=== PATIENT | female | born 1945 | race Caucasian/White ===

== ENCOUNTER 2019-09-21 12:10 | Outpatient (CLI) | payer MEDICARE, SELFPAY ==
--- NOTE | ~2019-09-21 | CT_ITS ---
EXAMINATION: CT abdomen pelvis w con DATE: 09/21/2019 13:14 INDICATION: Left lower quadrant abdominal pain. TECHNIQUE: Computed tomography (CT) of the abdomen and pelvis was performed with 100 mL Omnipaque 350 intravenous contrast. Automated exposure control and iterative reconstruction technique were employe d. The dose-length product was 1069.83 mGy-cm. COMPARISON: CT abdomen and pelvis 04/20/2017 FINDINGS: The visualized portions of the lung bases demonstrate mild atelectasis. No pleural effusion . The heart size is normal. No pericardial effusion. There are coronary artery calcifications. The li silvino, gallbladder, spleen, pancreas, and adrenal glands are normal. There is a 4 mm cyst in right kidn ey. There are peripelvic cysts in the kidneys. There are scattered diverticula in the colon. There is fat stranding around a diverticulum of the sigmoid colon, consistent with diverticulitis. There are no dilated loops of bowel. The appendix is normal. There are no pathologically enlarged lymph nodes. There is no free intraperitoneal fluid. There is a left hip arthroplasty. There is severe thoracic an d lumbar spondylosis. IMPRESSION: 1. Mild sigmoid diverticulitis. No perforation or abscess. Reviewed, dictated and finalized at location A.
[2019-09-21 13:09] LABS: Estimated Glomerular Filt Rate > 60
== END 2019-09-21 12:11 | disposition home or self-care (01) ==
PROVIDERS: PCP Physician Assistant; Visit Provider Physician Assistant
DX: R10.32 Left lower quadrant pain (principal); K57.32 Diverticulitis of large intestine without perforation or abscess without bleeding
CPT/HCPCS: 36415; 74177; Q9967

== ENCOUNTER 2020-07-18 10:35 | Outpatient (CLI) | payer MEDICARE, SELFPAY ==
--- NOTE | 2020-07-18 10:30 | ECG_ITS ---
Measurements Intervals [place] Rate: 62 P: 61 [place]: 223 QRS: 20 QRSD: 86 T: 32 QT: 391 QTc: 399 Interpretive Statements SINUS RHYTHM WITH FIRST DEGREE AV BLOCK BASELINE ARTIFACT- I, III, AVL ABNORMAL ECG Electronically Signed On 07-18-2020 11:15:14 CDT by Evangelista Herrera D.O.
[2020-07-18 11:34] LABS: Anion Gap 6 mmol/L (8-16); Blood Urea Nitrogen 19 mg/dL (7-17); Calcium 9.6 mg/dL (8.4-10.2); Carbon Dioxide 33 mmol/L (22-30); Chloride 99 mmol/L (98-107); Estimated Glomerular Filt Rate 54; Glucose 96 mg/dL (65-105); Potassium 3.9 mmol/L (3.4-5.0); Sodium 138 mmol/L (137-145)
== END 2020-07-18 10:36 | disposition home or self-care (01) ==
PROVIDERS: Anesthesiology; PCP Physician Assistant; Visit Provider Podiatrist Foot & Ankle Surgery
DX: I10 Essential (primary) hypertension (principal); Z01.818 Encounter for other preprocedural examination; I44.0 Atrioventricular block, first degree
CPT/HCPCS: 36415; 80048; 93005

== ENCOUNTER → 2020-07-23 01:39 | Outpatient (CLI) | payer MEDICARE, SELFPAY ==
[2020-07-23 18:55] LABS: SARS-CoV-2 RNA PCR Negative
== END ==
PROVIDERS: PCP Physician Assistant; Visit Provider Podiatrist Foot & Ankle Surgery
DX: Z01.812 Encounter for preprocedural laboratory examination (principal); Z20.822 Contact with and (suspected) exposure to COVID-19
CPT/HCPCS: C9803; U0003; U0005

== ENCOUNTER 2020-07-26 05:48 | Day surgery (SDC) | payer MEDICARE, SELFPAY ==
[2020-07-15 12:42] VITALS: BMI 32.9
--- NOTE | 2020-07-25 10:11 | WPDANESEPPF ---
Anes - Initial Pre Proc Eval Procedure: Operation Date: 07/26/20 07:30 Proposed Procedures p Removal Soft Tissue Mass Right Foot - Alvaro Santiago JR, MD Date/Time: 07/25/20 10:11 Surgeon: Alvaro Santiago JR, MD Pre Op Diagnosis: soft tissue mass right foot Patient Data Age: 75 Gender: F Height: 1.57 m Weight: 81.65 kg Allergies Allergy/AdvReac Type Severity Reaction Status Date / Time cephalexin Allergy Unknown Hives Verified 07/26/20 06:29 gentamicin Allergy Unknown MYCINS Verified 07/26/20 06:29 CAUSE HIVES Macrolide Antibiotics Allergy Unknown HIVES Verified 07/26/20 06:29 metronidazole Allergy Unknown SEVERE Verified 07/26/20 06:29 NAUSEA/VOMITING vancomycin Allergy Unknown MYCINS Verified 07/26/20 06:29 CAUSE HIVES Home Medications Medication Instructions Recorded Confirmed Type albuterol sulfate [Ventolin HFA] 2 inh INHALATION PRN PRN 07/15/20 07/26/20 History aspirin [Adult Low Dose Aspirin] 81 mg PO HS 07/15/20 07/26/20 History biotin 10,000 mcg PO DAILY 07/15/20 07/26/20 History carvedilol 12.5 mg PO QAM 07/15/20 07/26/20 History dimenhydrinate [Motion Sickness] 50 mg PO Q4-6H PRN 07/15/20 07/26/20 History docusate sodium [Stool Softener] 50 mg PO PRN PRN 07/15/20 07/26/20 History glycopyrrolate-formoterol [Bevespi 2 puff INHALATION DAILY 07/15/20 07/26/20 History Aerosphere] hydrochlorothiazide 25 mg PO QAM 07/15/20 07/26/20 History mqqsgrqskyle-Gq-yxrf-minerals 1 tablet PO DAILY 07/15/20 07/26/20 History [Women's Multiple Vitamins] olmesartan 40 mg PO DAILY 07/15/20 07/26/20 History omeprazole 40 mg PO HS 07/15/20 07/26/20 History pumpkin seed extract-soy germ [Azo 1 cap PO DAILY 07/15/20 07/26/20 History Bladder Control] rosuvastatin 10 mg PO HS 07/15/20 07/26/20 History Patient hx anesthesia problems: none Family hx anesthesia problems: none [facility], [facility] Past Medical History Medical History (Updated 07/25/20 @ 10:12 by Darrin Goldsmith DO) COPD (chronic obstructive pulmonary disease) GERD (gastroesophageal reflux disease) Hyperlipidemia Hypertension Vertigo Surgical History Surgical History (Updated 07/25/20 @ 10:13 by Darrin Goldsmith DO) History of total hip replacement Family History Family History (Updated 06/17/15 @ 09:41 by DOCTOR UNKNOWN) Other Family history of chronic obstructive pulmonary disease Social History Social History Smoking packs per day: 1 Smoking cigarettes per day: 20.0 Years smoked: 20 Smoking pack-years: 20.00 Smoking status: Former smoker Tobacco type: cigarettes Smoking end date: 03/15/05 Alcohol intake: never Living arrangements: with family Spiritual care concerns: No Anes - Eval Final PreProcedure Day of Procedure 07/25/20 10:11 Patient weight: obese Heart: regular rate and rhythm Lungs: clear to auscultation and normal air movement Airway: Mallampati scale class III Neurological: alert and oriented Last oral intake: >/= 8 hours ASA classification: III Emergent: no Anesthetic plan: proceed Anesthesia type and monitoring: general GIVS and standard monitoring Informed Consent: The patient's anesthetic plan and its attendant risks and benefits were discussed with the patient/family/POA. Questions were solicited and answers provided to the satisfaction of the patient/family/POA.
[2020-07-26] VITALS (9 sets, daily range): BP systolic 96–143; BP diastolic 56–78; PULSE 61–71; RESP 12–18; TEMP 36.2–36.6; O2SAT 93–99
[2020-07-26] MEDS: LACTATED RINGERS 1,000 ML 30 ML IV CONT (06:37)
--- NOTE | 2020-07-26 07:22 | WPDHPUPDATE1 ---
History and Physical Update Update Date/Time: 07/26/20 07:22 History and Physical has been reviewed, including an updated exam of the patient. There are NO changes in the patient's condition. Risks, benefits, and alternatives have been discussed and questions answered. Patient agrees to proceed with procedure.
[2020-07-26] MEDS: CLINDAMYCIN 900 MG/D5W 50 ML 900 MG/50 ML PIGGYBACK 50 MG IVPB (07:29)
[2020-07-26] MEDS: BUPIVACAINE HCL 0.5% PF 30 ML VIAL 10 ML INFILTRATE (07:57)
[2020-07-26] MEDS: LIDOCAINE HCL 2% PF INJ 5 ML VIAL 10 ML INFILTRATE (07:57)
--- NOTE | 2020-07-26 08:40 | PM.PROC ---
Procedure Note - Detailed Date of procedure: 07/26/20 Pre-op diagnosis: soft tissue mass right foot Post-op diagnosis: same Procedure performed: Excision of soft tissue mass right foot Anesthesia: GLMA and local Surgeon: Alvaro Santiago JR, DPM Estimated blood loss (mL): 1 Drains: No Packing: No Pathology: yes (thickwalled mass sent for gross and histopathology) Complications: No immediate complications Condition: stable Disposition: same day Findings: Under mild sedation, the patient was brought in to the operating room, placed on the operating table in the supine position. A pneumatic ankle tourniquet was placed about the patient's right ankle. Following general anesthesia, local anesthesia was obtained about the right lower extremity utilizing 20 ccs of 2% Lidocaine plain and 0.5% Marcaine plain. The foot was then scrubbed, prepped, and draped in the usual aseptic manner. An Esmarch bandage was then used to exsanguinate the patient's foot and the pneumatic ankle tourniquet was then inflated. Next, an incision was made starting proximal to the plantar first metatarsal head extending to the base of the hallux. Dissection was continued deep to the subcutaneus structures. All bleeders were cauterized as necessary. Next the dissection was continued down to the plantar fascia which was noted to be normal. Along the plantar first metatarsal head was a thick walled cyst like mass that was freed of its soft tissue attachement and sent for gross and histopathology. The wound site was flushed with sterile saline. The Deep subcutaneus tissue was reapproximated with 3-0 Vicryl and the skin was reapproximated with 3-0 Prolene in Simple interrupted suture technique. Upon completion of the procedure the plantar incision was dressed with adaptic, 4.4 gauze, kerlix and coban. The pneumatic ankle tourniquet was then deflated and a prompt hyperemic response was noted to all digits of the right foot. The surgical shoe was then applied. The patient did very well with the procedure and the anesthesia. She was transferred to the recovery room with vital signs stable and vascular status intact to all toes of the affected foot. Following a period of postoperative monitoring, the patient will be discharged home on the following written and oral postoperative instructions: 1. The patient should keep the dressing clean, dry, and intact. Use a cast protector bag with showers. 2. The patient will be strictly protected weight bearing with a surgical shoe. 3. Patient should ice and elevate the right foot when at rest. 4. The patient is to contact Dr. Santiago for all postop care and if any problems arise. 5. Prescriptions were written for Percocet 5/325 dispensed 40 to be taken 1 p.o. q.4-6 hours as needed for severe pain.
[2020-07-26] MEDS: oxyCODONE/ACETAMINOPHEN (*CRX) 5-325 MG TABLET 1 TABLET PO (10:10)
== END 2020-07-26 10:45 | disposition home or self-care (01) ==
PROVIDERS: PCP Physician Assistant; Visit Provider Podiatrist Foot & Ankle Surgery
PROC: (CPT 11421; principal; 2020-07-26 07:30)
DX: M79.89 Other specified soft tissue disorders (principal); J44.9 Chronic obstructive pulmonary disease, unspecified; I10 Essential (primary) hypertension; E78.5 Hyperlipidemia, unspecified; K21.9 Gastro-esophageal reflux disease without esophagitis; Z87.891 Personal history of nicotine dependence; E66.9 Obesity, unspecified; Z68.33 Body mass index [BMI] 33.0-33.9, adult
CPT/HCPCS: 11421; 12041; 88304; A9270; J2370; J2405; J2704; J3010; J7120

== ENCOUNTER 2020-10-26 10:46 | Emergency (ER) | payer MEDICARE, SELFPAY ==
--- NOTE | 2020-10-26 10:55 | ED.URI ---
HPI - URI/Sore Throat General Chief Complaint: Upper Respiratory Infection Stated Complaint: Cough,Blood tinted Sputum Time Seen by Provider: 10/26/20 10:56 Source: patient and RN notes reviewed Mode of arrival: ambulatory Limitations: no limitations History of Present Illness HPI Narrative: 75-year-old female presents to the [facility] with I do not feel well. . Patient has a history of COPD and has just had increased coughing. Denies any breathing changes, breathing difficulty states that she is just had an increased cough. All night it has been clear sputum states that she had some brownish discoloration while sitting in the car prior to arrival. Patient is concerned over COVID-19 even though she has been vaccinated in May 2020 with the Moderna vaccine MD elicited complaint: cough (increased) Pertinent past history: COPD Onset (ago): hour(s) (12) Related Data Home Medications Medication Instructions Recorded Confirmed Bevespi Aerosphere 2 puff INHALATION DAILY 07/15/20 10/26/20 albuterol sulfate [Ventolin HFA] 2 inh INHALATION PRN PRN 07/15/20 10/26/20 aspirin 81 mg PO 07/15/20 10/26/20 biotin 10,000 mcg PO DAILY 07/15/20 10/26/20 carvedilol 12.5 mg PO QAM 07/15/20 10/26/20 hydrochlorothiazide 25 mg PO [facility] 07/15/20 10/26/20 yeyfimosjkin-Cc-aipg-minerals 1 tablet PO DAILY 07/15/20 10/26/20 olmesartan 40 mg PO DAILY 07/15/20 10/26/20 omeprazole 40 mg PO 07/15/20 10/26/20 rosuvastatin 10 mg PO 07/15/20 10/26/20 Allergies Allergy/AdvReac Type Severity Reaction Status Date / Time cephalexin Allergy Unknown Hives Verified 10/26/20 11:22 gentamicin Allergy Unknown MYCINS Verified 10/26/20 11:22 CAUSE HIVES Macrolide Antibiotics Allergy Unknown HIVES Verified 10/26/20 11:22 metronidazole Allergy Unknown SEVERE Verified 10/26/20 11:22 NAUSEA/VOMITING vancomycin Allergy Unknown MYCINS Verified 10/26/20 11:22 CAUSE HIVES Review of Systems Review of Systems: All systems reviewed & are unremarkable except as noted in HPI and below Constitutional: Constitutional: Reports no additional constitutional complaints, Denies chills and Denies fever(s) Eyes: Eyes: Reports no additional eye complaints ENT: Reports system reviewed and no additional complaints, except as documented, Denies vertigo, Denies dizziness, Denies nasal congestion and Denies sore throat Cardiovascular: Cardiovascular: Reports no additional cardiovascular complaints, Denies chest pain, Denies rapid heart rate and Denies slow heart rate Respiratory: Respiratory: Reports as per HPI, Denies chest congestion, Reports cough, Denies dyspnea and Denies wheezing Musculoskeletal: Musculoskeletal: Reports no additional musculoskeletal complaints Integumentary/Breasts: Skin/Breast: Reports system reviewed and no additional complaints, except as docu Neurologic: Reports system reviewed and no additional complaints, except as documented Psychiatric: Psychiatric: Reports no additional psychiatric complaints Allergic/Immunologic: Allergic/Immunologic: Reports no additional allergic/immunologic complaints [facility] Past Medical History Medical History (Updated 10/26/20 @ 11:16 by Shantell Carvajal) COPD (chronic obstructive pulmonary disease) GERD (gastroesophageal reflux disease) Hyperlipidemia Hypertension Vertigo Surgical History Surgical History History of total hip replacement Family History Family History Other Family history of chronic obstructive pulmonary disease Social History Social History Smoking packs per day: 1 Smoking cigarettes per day: 20.0 Years smoked: 20 Smoking pack-years: 20.00 Smoking status: Former smoker Tobacco type: cigarettes Smoking end date: 03/15/05 Alcohol intake: never Gender identity (if verbalized by the patient): Female Spiritual care ad
[2020-10-26 11:00] VITALS: BP 147/69; PULSE 63; RESP 18; TEMP 36.3; O2SAT 97
[2020-10-28 18:30] LABS: SARS-CoV-2 RNA PCR Negative
== END 2020-10-26 11:30 | disposition home or self-care (01) ==
PROVIDERS: Emergency Provider Nurse Practitioner; PCP Physician Assistant
DX: J06.9 Acute upper respiratory infection, unspecified (principal); Z20.822 Contact with and (suspected) exposure to COVID-19; Z87.891 Personal history of nicotine dependence; J44.9 Chronic obstructive pulmonary disease, unspecified; K21.9 Gastro-esophageal reflux disease without esophagitis; E78.5 Hyperlipidemia, unspecified; I10 Essential (primary) hypertension
CPT/HCPCS: 99213; C9803; G0463; U0003; U0005

== ENCOUNTER 2020-12-03 09:35 | Outpatient (CLI) | payer MEDICARE, SELFPAY ==
--- NOTE | ~2020-12-03 | DEXA_ITS ---
Bone Density Report Name: Janie Young Age: 75 Sex: Female Ethnicity: White Date of : 1945 Indication: postmenopausal; height loss; asthma or emphysema; Referring Provider: SACHI, DENI Study: Bone densitometry was performed. Exam Date: December 03, 2020 Accession number: [id number] Bone Density: Region BMD T-score Z-score Classification AP Spine (L3, L4) 1.163 0.6 3.2 Normal Femoral Neck (Right) 0.603 -2.2 0.0 Osteopenia Total Hip (Right) 0.816 -1.0 0.9 Normal World Health Organization criteria for BMD impression classify patients as: Normal (T-score at or above -1.0), Osteopenia (T-score between -1.0 and -2.5), or Osteoporosis (T-score at or below -2.5). 10-year Fracture Risk(1): Major Osteoporotic Fracture 14% Hip Fracture 4.0% Reported Risk Factors: [place] (), Neck BMD=0.603, BMI=34.0 (1) FRAX(R) Version 3.08. Fracture probability calculated for an untreated patient. Fracture probability may be lower if the patient has received treatment. Previous Exams: Region Exam Age BMD T-score BMD Change BMD Change Date g/cm2 vs Baseline vs Previous AP Spine(L3, L4) 12/03/2020 75 1.163 0.6 -0.070(-5.7%)# -0.070(-5.7%)# 10/25/2012 67 1.234 1.2 Total Hip(Right) 12/03/2020 75 0.816 -1.0 -0.137(-14.3%) -0.137(-14.3%) 10/25/2012 67 0.953 0.1 *Denotes significance at 95% confidence level, LSC for AP Spine = 0.022 g/cm2, LSC for Total Hip = 0.027 g/cm2 Clinical Information Provided by Patient: Has used the following medications: Vitamin D Has the following medical conditions: Asthma or Emphysema Patient maximum height was 63 Menopause Age: 48 No regular weight bearing exercise Drinks caffeinated beverages Onset of menses at age 12 Number of children 2 Impression: The patient has low bone mass, based on the Right Femoral Neck T-score. The patient has an estimated ten-year risk of hip fracture of 4% and an estimated ten-year risk of major fracture of 14%, based on the WHO FRAX algorithm. No significant bone loss was observed. Discussion: BONE DENSITY IS LOW AT ONE OR MORE SKELETAL SITES. THE PATIENT'S BMD AND CLINICAL RISK FACTORS CONTRIBUTE TO THIS PATIENT'S INCREASED RISK OF FRACTURE. This patient's lowest T-score is low at one or more skeletal sites. It meets the World Health Organization's (WHO) criteria for ?low bone mass? (T-score between -1.0 and -2.5). The patient's 10-year risk of hip fracture as calculated by FRAX exceeds the threshold where pharmacological therap
== END 2020-12-03 09:36 | disposition home or self-care (01) ==
LOC: ANHIMG 09:37
PROVIDERS: PCP Physician Assistant; Visit Provider Physician Assistant
DX: Z78.0 Asymptomatic menopausal state (principal); M85.851 Other specified disorders of bone density and structure, right thigh
CPT/HCPCS: 77080

== ENCOUNTER 2020-12-17 08:26 | Emergency (ER) | payer MEDICARE, SELFPAY ==
[2020-12-17] VITALS (7 sets, daily range): BP systolic 114–121; BP diastolic 58–63; PULSE 62–69; RESP 14–19; TEMP 36.8; O2SAT 94–97
--- NOTE | ~2020-12-17 | XR_ITS ---
XR chest 2V DATE: 12/17/2020 09:00 INDICATION: Shortness of breath TECHNIQUE: AP and lateral chest COMPARISON: 05/26/2018 2 view chest FINDINGS: Heart size appears within normal limits. There is thoracic aortic calcification. No hilar o r mediastinal enlargement. No pulmonary infiltrate or consolidation, pleural effusion or pulmonary co ngestion or pneumothorax is detected. Diffuse osteopenia. IMPRESSION: No active cardiopulmonary disease Reviewed, dictated and finalized at location A.
--- NOTE | 2020-12-17 08:44 | ECG_ITS ---
Measurements Intervals [place] Rate: 69 P: 95 [place]: 203 QRS: 29 QRSD: 79 T: 46 QT: 375 QTc: 402 Interpretive Statements SINUS RHYTHM BORDERLINE AV CONDUCTION DELAY BASELINE WANDER- V1 BORDERLINE ECG Electronically Signed On 12-17-2020 9:18:47 CDT by Evangelista Herrera D.O.
--- NOTE | 2020-12-17 09:03 | ED.SOB ---
HPI - SOB/Dyspnea General Chief Complaint: Shortness of Breath/Dyspnea Stated Complaint: cough, dyspnea Time Seen by Provider: 12/17/20 09:02 Source: patient and family Mode of arrival: ambulatory Limitations: no limitations History of Present Illness HPI Narrative: 75-year-old female History of COPD Here for evaluation of shortness of breath and an episode of hemoptysis He states that she has been mildly ill for a week or 2 but has had a worse cough and increased shortness of breath with activity for the past 1-1/2 to 2 days Earlier today she had a cough that produced a small amount of blood with mucus which concerned her because her to come to the hospital She did not use any of her COPD medications this morning No chest pain, no fever She has been vaccinated against Covid and does not have any contacts that she knows of MD elicited complaint: shortness of breath and cough Related Data Home Medications Medication Instructions Recorded Confirmed Bevespi Aerosphere 2 puff INHALATION DAILY 07/15/20 10/26/20 albuterol sulfate [Ventolin HFA] 2 inh INHALATION PRN PRN 07/15/20 10/26/20 aspirin 81 mg PO 07/15/20 10/26/20 biotin 10,000 mcg PO DAILY 07/15/20 10/26/20 carvedilol 12.5 mg PO QAM 07/15/20 10/26/20 hydrochlorothiazide 25 mg PO QA 07/15/20 10/26/20 xyvmegewwtzn-Lq-txxh-minerals 1 tablet PO DAILY 07/15/20 10/26/20 olmesartan 40 mg PO DAILY 07/15/20 10/26/20 omeprazole 40 mg PO 07/15/20 10/26/20 rosuvastatin 10 mg PO 07/15/20 10/26/20 Allergies Allergy/AdvReac Type Severity Reaction Status Date / Time cephalexin Allergy Unknown Hives Verified 12/17/20 08:46 gentamicin Allergy Unknown MYCINS Verified 12/17/20 08:46 CAUSE HIVES Macrolide Antibiotics Allergy Unknown HIVES Verified 12/17/20 08:46 metronidazole Allergy Unknown SEVERE Verified 12/17/20 08:46 NAUSEA/VOMITING vancomycin Allergy Unknown MYCINS Verified 12/17/20 08:46 CAUSE HIVES Review of Systems Review of Systems: All systems reviewed & are unremarkable except as noted in HPI and below Constitutional: Constitutional: Reports no additional constitutional complaints, Denies chills, Denies fever(s) and Denies headache(s) Eyes: Eyes: Reports no additional eye complaints and Denies change in vision ENT: Denies headache(s) and Denies sore throat Cardiovascular: Cardiovascular: Denies chest pain and Denies dyspnea Respiratory: Respiratory: Reports cough and Reports dyspnea Gastrointestinal: Gastrointestinal: Denies abdominal pain, Denies diarrhea and Denies vomiting Genitourinary: Genitourinary: Denies urinary frequency and Denies dysuria Musculoskeletal: Musculoskeletal: Denies deformity, Denies arthralgias, Denies joint swelling and Denies numbness Integumentary/Breasts: Skin/Breast: Denies rash and Denies wounds Neurologic: Denies headache(s), Denies focal weakness and Denies numbness Psychiatric: Psychiatric: Reports no additional psychiatric complaints Endocrine: Endocrine: Reports no additional endocrine complaints Hematologic/Lymphatic: Hematologic/Lymphatic: Reports no additional hematologic/lymphatic complaints and Denies easy bleeding Allergic/Immunologic: Allergic/Immunologic: Reports no additional allergic/immunologic complaints PMFSH Past Medical History Medical History COPD (chronic obstructive pulmonary disease) GERD (gastroesophageal reflux disease) Hyperlipidemia Hypertension Vertigo Surgical History Surgical History History of total hip replacement Family History Family History Other Family history of chronic obstructive pulmonary disease Social History Social History Smoking packs per day: 1 Smoking cigarettes per day: 20.0 Years smoked: 20 Smoking pack-years: 20.00 S
[2020-12-17 09:07] LABS: Hematocrit 41.9 % (37.0-47.0); Hemoglobin 13.5 g/dL (12.0-15.0); Mean Corpuscular HGB Conc 32.2 g/dl (32-36); Mean Corpuscular Volume 89.9 fl (80-100); Mean Platelet Volume 9.8 fl (7.4-10.4); Platelet Count Result 173 k/mm3 (150-375); Red Blood Count 4.66 M/mm3 (4.2-5.4); Red Cell Distribution Width 13.1 % (11.5-14.5); White Blood Count 6.5 K/mm3 (4.5-10.0)
[2020-12-17 09:19] LABS: Anion Gap 7 mmol/L (8-16); Blood Urea Nitrogen 17 mg/dL (7-17); Calcium 8.8 mg/dL (8.4-10.2); Carbon Dioxide 29 mmol/L (22-30); Chloride 98 mmol/L (98-107); Estimated CRCL calculation 43 ml/min; Estimated Glomerular Filt Rate 54; Glucose 109 mg/dL (65-110); Potassium 3.6 mmol/L (3.4-5.0); Sodium 134 mmol/L (137-145)
[2020-12-17 09:43] LABS: Band Neutrophils Percent 1 % (0-6); Lymphocytes Absolute Manual 1.88 K/mm3 (1.1-4.5); Monocytes Absolute Manual 1.75 K/mm3 (0.1-0.90); Monocytes Percent Manual 27 % (3-9); Neutrophils Absolute Manual 2.86 K/mm3 (1.7-7.2); Neutrophils Percent Manual 43 % (46-73); Platelet Estimate Adequate (Adequate); Total Cells Counted 100
[2020-12-17] MEDS: IPRATROPIUM BR 0.02% INH SOLN 0.5 MG/2.5 ML VIAL INHALATION (10:22)
[2020-12-17] MEDS: ALBUTEROL SULFATE NEB 2.5 MG/0.5 ML INH 5 MG INHALATION (10:22)
[2020-12-17 10:54] LABS: D Dimer 0.34 ug/mL (<0.48)
[2020-12-17 11:22] LABS: NT Pro B Type Natriuretic Pept 148 pg/mL (5-100); Troponin I < 0.012 ng/mL (0.000-0.034)
[2020-12-17 19:14] LABS: SARS-CoV-2 RNA PCR Positive
== END 2020-12-17 11:58 | disposition home or self-care (01) ==
PROVIDERS: Emergency Provider Emergency Medicine; PCP Physician Assistant
DX: U07.1 COVID-19 (principal); J44.1 Chronic obstructive pulmonary disease with (acute) exacerbation; I10 Essential (primary) hypertension; E78.5 Hyperlipidemia, unspecified; Z87.891 Personal history of nicotine dependence; Z79.82 Long term (current) use of aspirin
CPT/HCPCS: 36415; 71046; 80048; 83880; 84484; 85025; 85380; 93005; 94640; 96365; 96366; 96375; 99284; C9803; J1100; J1956; U0003; U0005

== ENCOUNTER → 2021-07-08 10:27 | Outpatient (CLI) | payer MEDICARE, SELFPAY ==
--- NOTE | ~2021-07-08 | XR_ITS ---
XR hip LT min 2V DATE: 07/08/2021 10:50 INDICATION: Left hip pain TECHNIQUE: AP, lateral and crosstable lateral views of left hip COMPARISON: 03/12/2016 left hip FINDINGS: Status post left total hip arthroplasty. No fracture or dislocation, periosteal reaction or bone destruction is detected. Normal alignment at the pubic symphysis and left sacroiliac joint. Degenerative disc disease in the lower lumbar spine. IMPRESSION: Status post left total hip arthroplasty Reviewed, dictated and finalized at location A.
== END ==
PROVIDERS: PCP Physician Assistant; Visit Provider Physician Assistant
DX: M25.552 Pain in left hip (principal)
CPT/HCPCS: 73502

== ENCOUNTER 2022-08-25 01:24 | Day surgery (SDC) | payer MEDICARE, SELFPAY ==
[2022-08-17 14:28] VITALS: BMI 32.5
[2022-08-25 07:18] VITALS: BP 152/70; PULSE 67; RESP 17; TEMP 36; O2SAT 96; BMI 32.8
[2022-08-25] MEDS: LACTATED RINGERS 1,000 ML 150 ML IV CONT (07:29)
--- NOTE | 2022-08-25 08:06 | WPDANESEPPF ---
Anes - Initial Pre Proc Eval Procedure: Operation Date: 08/25/22 08:45 Proposed Procedures p Colonoscopy - Norm Lindsay MD Date/Time: 08/25/22 08:06 Surgeon: Norm Lindsay MD Pre Op Diagnosis: hx colon polyps Patient Data Age: 77 Gender: F Height: 1.59 m Weight: 82.8 kg Last Vital Signs Temp 36.0 C L 08/25/22 07:18 Pulse 67 08/25/22 07:18 Resp 17 08/25/22 07:18 BP 152/70 H 08/25/22 07:18 Pulse Ox 96 08/25/22 07:18 O2 Del Method Room Air 08/25/22 07:18 Allergies Allergy/AdvReac Type Severity Reaction Status Date / Time cephalexin Allergy Unknown Hives Verified 08/25/22 07:17 gentamicin Allergy Unknown MYCINS Verified 08/25/22 07:17 CAUSE HIVES Macrolide Antibiotics Allergy Unknown HIVES Verified 08/25/22 07:17 metronidazole Allergy Unknown SEVERE Verified 08/25/22 07:17 NAUSEA/VOMITING vancomycin Allergy Unknown MYCINS Verified 08/25/22 07:17 CAUSE HIVES Home Medications Medication Instructions Recorded Confirmed Type albuterol sulfate 90 mcg/actuation 2 inh inhalation PRN PRN SOB 07/15/20 08/25/22 History aerosol inhaler (Ventolin HFA) aspirin 81 mg tablet 81 mg PO HS 07/15/20 08/25/22 History biotin 10,000 mcg capsule 10,000 mcg PO DAILY 07/15/20 08/25/22 History carvedilol 12.5 mg tablet 12.5 mg PO QAM 07/15/20 08/25/22 History hydrochlorothiazide 25 mg tablet 25 mg PO QAM 07/15/20 08/25/22 History sdcjuvrrcgno-Nn-ocoe-minerals 18 1 tablet PO DAILY 07/15/20 08/25/22 History mg-0.4 mg tablet olmesartan 40 mg tablet 40 mg PO DAILY 07/15/20 08/25/22 History omeprazole 40 mg capsule,delayed 40 mg PO HS 07/15/20 08/25/22 History release rosuvastatin 10 mg tablet 10 mg PO HS 07/15/20 08/25/22 History inhalational spacing device #1 ea 10/26/20 08/25/22 Rx (Aerochamber with Flowsignal) amlodipine 2.5 mg tablet 2.5 mg PO DAILY 08/17/22 08/25/22 History Patient hx anesthesia problems: none Family hx anesthesia problems: none Results Review: All pre-operative results and documents have been reviewed as part of the pre-operative evaluation. [facility] Past Medical History Medical History COPD (chronic obstructive pulmonary disease) GERD (gastroesophageal reflux disease) Hyperlipidemia Hypertension Vertigo Surgical History Surgical History History of total hip replacement Family History Family History Other Family history of chronic obstructive pulmonary disease Social History Social History Smoking packs per day: 1 Smoking cigarettes per day: 20.0 Years smoked: 20 Smoking pack-years: 20.00 Smoking status: Former smoker Tobacco type: cigarettes Smoking end date: 03/15/92 Alcohol intake: never Substance use: never Substance use type: does not use Living arrangements: with family Gender identity (if verbalized by the patient): Female Spiritual care concerns: No Anes - Eval Final PreProcedure Day of Procedure 08/25/22 08:06 Patient weight: obese Heart: regular rate and rhythm Lungs: clear to auscultation and normal air movement Airway: Mallampati scale class III Neurological: alert and oriented Last oral intake: >/= 8 hours ASA classification: III Emergent: no Anesthetic plan: proceed Anesthesia type and monitoring: general GIVS and standard monitoring Results Review: All pre-operative results and documents have been reviewed as part of the pre-operative evaluation. Informed Consent: The patient's anesthetic plan and its attendant risks and benefits were discussed with the patient/family/POA. Questions were solicited and answers provided to the satisfaction of the patient/family/POA.
--- NOTE | 2022-08-25 08:20 | PM.HPGS ---
History of Present Illness History of Present Illness Consent: Risks, benefits, and alternatives have been discussed and questions answered. Patient agrees to proceed with procedure. Chief complaint: hx colon polyps Narrative: Janie Young is a 77 year old female with colon polyps in 2018 Review of Systems Constitutional: Constitutional: Denies headache(s) and Denies weakness Eyes: Eyes: Denies blurry vision ENT: Reports Normal hearing present, Denies headache(s) and Denies neck pain Cardiovascular: Cardiovascular: Denies chest pain and Denies dyspnea Respiratory: Respiratory: Denies dyspnea Gastrointestinal: Gastrointestinal: Reports no additional gastrointestinal complaints Genitourinary: Genitourinary: Denies dysuria Musculoskeletal: Musculoskeletal: Denies neck pain Integumentary/Breasts: Skin/Breast: Denies dry skin Neurologic: Reports Normal hearing present, Denies headache(s) and Denies weakness Psychiatric: Psychiatric: Denies anxiety Endocrine: Endocrine: Denies change in body appearance Hematologic/Lymphatic: Hematologic/Lymphatic: Denies easy bleeding Allergic/Immunologic: Allergic/Immunologic: Denies urticaria PMF Past Medical History Medical History (Updated 08/25/22 @ 08:21 by Norm Lindsay MD) Adenomatous colon polyp Colon cancer screening COPD (chronic obstructive pulmonary disease) GERD (gastroesophageal reflux disease) Hyperlipidemia Hypertension Vertigo Surgical History Surgical History History of total hip replacement Family History Family History Other Family history of chronic obstructive pulmonary disease Social History Social History Smoking packs per day: 1 Smoking cigarettes per day: 20.0 Years smoked: 20 Smoking pack-years: 20.00 Smoking status: Former smoker Tobacco type: cigarettes Smoking end date: 03/15/92 Alcohol intake: never Substance use: never Substance use type: does not use Living arrangements: with family Gender identity (if verbalized by the patient): Female Spiritual care concerns: No Meds Home Medications and Allergies Home Medications Medication Instructions Recorded Confirmed Type albuterol sulfate 90 mcg/actuation 2 inh inhalation PRN PRN SOB 07/15/20 08/25/22 History aerosol inhaler (Ventolin HFA) aspirin 81 mg tablet 81 mg PO HS 07/15/20 08/25/22 History biotin 10,000 mcg capsule 10,000 mcg PO DAILY 07/15/20 08/25/22 History carvedilol 12.5 mg tablet 12.5 mg PO QAM 07/15/20 08/25/22 History hydrochlorothiazide 25 mg tablet 25 mg PO QAM 07/15/20 08/25/22 History tygzwbuaoerk-Mf-njsa-minerals 18 1 tablet PO DAILY 07/15/20 08/25/22 History mg-0.4 mg tablet olmesartan 40 mg tablet 40 mg PO DAILY 07/15/20 08/25/22 History omeprazole 40 mg capsule,delayed 40 mg PO HS 07/15/20 08/25/22 History release rosuvastatin 10 mg tablet 10 mg PO HS 07/15/20 08/25/22 History inhalational spacing device #1 ea 10/26/20 08/25/22 Rx (Aerochamber with Flowsignal) amlodipine 2.5 mg tablet 2.5 mg PO DAILY 08/17/22 08/25/22 History Allergies Allergy/AdvReac Type Severity Reaction Status Date / Time cephalexin Allergy Unknown Hives Verified 08/25/22 07:17 gentamicin Allergy Unknown MYCINS Verified 08/25/22 07:17 CAUSE HIVES Macrolide Antibiotics Allergy Unknown HIVES Verified 08/25/22 07:17 metronidazole Allergy Unknown SEVERE Verified 08/25/22 07:17 NAUSEA/VOMITING vancomycin Allergy Unknown MYCINS Verified 08/25/22 07:17 CAUSE HIVES Vital Signs Vital Signs - 24 hr 08/25/22 07:18 Temperature 96.8 F L Pulse Rate 67 Respiratory Rate 17 Blood Pressure 152/70 H Pulse Oximetry 96 Oxygen Delivery Room Air Exam Const: General: comfortable and no acute distress HENMT: Face/Nose/Sinus: Normal nares pre
[2022-08-25 08:50] VITALS: BP 103/44; PULSE 59; RESP 22; O2SAT 100
[2022-08-25 09:00] VITALS: BP 95/66; PULSE 59; RESP 18; O2SAT 100
[2022-08-25 09:10] VITALS: BP 112/72; PULSE 60; RESP 20; O2SAT 100
== END 2022-08-25 09:15 | disposition home or self-care (01) ==
PROVIDERS: PCP Physician Assistant; Visit Provider Internal Medicine Gastroenterology
PROC: 0DJD8ZZ Inspection of Lower Intestinal Tract, Via Natural or Artificial Opening Endoscopic (ICD-10-PCS; CPT 45378; principal; 2022-08-25 08:45)
DX: Z12.11 Encounter for screening for malignant neoplasm of colon (principal); D12.0 Benign neoplasm of cecum; K63.5 Polyp of colon; K57.30 Diverticulosis of large intestine without perforation or abscess without bleeding; K64.8 Other hemorrhoids; J44.9 Chronic obstructive pulmonary disease, unspecified; I10 Essential (primary) hypertension; E78.5 Hyperlipidemia, unspecified; K21.9 Gastro-esophageal reflux disease without esophagitis; Z79.51 Long term (current) use of inhaled steroids; Z79.82 Long term (current) use of aspirin; Z87.891 Personal history of nicotine dependence; E66.9 Obesity, unspecified; Z68.32 Body mass index [BMI] 32.0-32.9, adult
CPT/HCPCS: 45385; 88305; J2001; J2704; J7120

== ENCOUNTER 2022-10-13 07:19 | Outpatient (CLI) | payer MEDICARE, SELFPAY ==
--- NOTE | 2022-10-13 | ECHO_ITS ---
Patient Info Name: Janie Young Age: 77 years : 1945 Gender: Female Ht: 62 in Wt: 185 lbs BSA: 1.95 m2 HR: 85 bpm BP: 132 / 69 mmHg Heart Rhythm: Sinus Rhythm Technical Quality: Fair Exam Date: 10/13/2022 8:13 AM Exam Location: [facility] Pulmonary Patient Status: Outpatient Admit Date: 10/13/2022 Staff Ordering Physician: Robert Guerra MD Appraiser: Divya Ortiz RDCS Attending Provider: Robert Guerra MD Exam Type: CA echo doppler color flow Study Info Indications R06.09 - Other forms of dyspnea Complete two-dimensional, color flow and Doppler transthoracic echocardiogram is performed. Summary 1. Complete two-dimensional, color flow and Doppler transthoracic echocardiogram is performed. 2. Mild left ventricular enlargement with normal thickness. Good systolic function of all segments with ejection fraction 60-65%. Diastolic dysfunction is present. Global longitudinal strain was mildly diminished at -15% suggesting early systolic dysfunction. 3. Left atrial chamber dimension is moderately enlarged. 4. No pulmonary hypertension, estimated pulmonary arterial systolic pressure is 26 mmHg. 5. No significant valve disease. 6. Normal sinus rhythm. Left Ventricle Left ventricular chamber dimension is mildly enlarged. Left ventricular systolic function is normal, estimated at 60-65%. There is no increased left ventricular wall thickness. Left ventricular septal wall motion is normal. The left ventricular diastolic function is abnormal. Global longitudinal strain is mildly elevated at -15 %. Right Ventricle Right ventricular chamber dimension is normal. Right ventricular systolic function is normal. Left Atria Left atrial chamber dimension is moderately enlarged. Right Atria Right atrial chamber dimension is normal. Aortic Valve The aortic valve is trileaflet. There is no aortic valve sclerosis. There is no aortic valve stenosis. There is no aortic valve regurgitation. Pulmonic Valve The pulmonic valve is normal. There is no pulmonic valve stenosis. There is no pulmonic regurgitation. Mitral Valve The mitral valve has normal leaflets. There is no mitral valve stenosis. There is trace mitral valve regurgitation. Tricuspid Valve The tricuspid valve leaflets are normal. There is no significant tricuspid valve stenosis. There is trace tricuspid valve regurgitation. No pulmonary hypertension, estimated pulmonary arterial systolic pressure is 26 mmHg. Pericardium/Pleural The pericardium appears normal. There is no pericardial effusion. Inferior Vena Cava Normal inferior vena cava with >50% collapse upon inspiration consistent with Empty right atrial pressure, 10 mmHg. Aorta The aortic root size at the sinus of Valsalva is normal. The prox ascending aorta size is normal. Left Ventricular Outflow Tract Name Value Normal LVOT 2D LVOT Diameter 2.0 cm LVOT Doppler LVOT Peak Gradient 4 mmHg LVOT Mean Gradient 2 mmHg LVOT VTI 24 cm LVOT VTI/AV VTI Ratio 1.0 LVOT Stroke Volume 74 ml LVOT CO 3.
== END 2022-10-13 07:20 | disposition home or self-care (01) ==
LOC: ANHCARD 07:20
PROVIDERS: PCP Physician Assistant; Visit Provider Internal Medicine Cardiovascular Disease
DX: R06.09 Other forms of dyspnea (principal); R07.89 Other chest pain
CPT/HCPCS: 93306

== ENCOUNTER 2023-08-10 11:04 | Outpatient (CLI) | payer MEDICARE, SELFPAY ==
--- NOTE | ~2023-08-10 | MR_ITS ---
MRI of the left shoulder Technique: Axial proton-density fat-sat images, coronal proton density fat-sat and T2 fat-sat images, and sagittal T1-weighted and T2 fat-sat images were acquired. Clinical History: Rotator cuff tendinitis Findings: There is advanced AC joint degenerative change, bony productive change and fluid in the saima nt space. Coracoclavicular, coracoacromial, and coracohumeral ligaments appear intact. There is full-thickness tear involving nearly the entire supraspinatus tendon, with fluid-filled gap measuring approximately 1.5 x 1.5 cm in extent. Posterior most fibers of the supraspinatus tendon may remain intact. There is moderate to advanced infraspinatus tendinosis, without definite partial or f ull-thickness tear. There is probable tearing of the distal transverse ligament fibers of the subscap ularis tendon, with bridging of the long head biceps tendon of the medial aspect of the bicipital lesa ove. There is moderate subscapularis tendinosis. No definite labral tear seen. Inferior glenohumeral ligament is intact. There is a small glenohumeral joint effusion with small hawk unt of fluid in the subacromial/subdeltoid bursa. There is mild chondromalacia of the humeral head. N o muscle atrophy or edema. Impression: Full-thickness, near complete tear of the supraspinatus tendon, as detailed above. Probable tearing of the distal transverse ligament fibers of the subscapularis tendon, with perching of the long head of the biceps tendon along the medial margin of the bicipital groove. Background rotator cuff tendinosis, as above. Advanced AC joint degenerative change. Reviewed, dictated and finalized at location M. Impression: Full-thickness, near complete tear of the supraspinatus tendon, as detailed abo ve. Probable tearing of the distal transverse ligament fibers of the subscapularis tendon, with perching of the long head of the biceps tendon along the medial ma rgin of the bicipital groove. Background rotator cuff tendinosis, as above. Advanced AC joint degenerative change.
== END 2023-08-10 11:05 ==
LOC: GOSHIMG 11:05
PROVIDERS: PCP Physician Assistant; Visit Provider Physician Assistant
DX: M75.82 Other shoulder lesions, left shoulder (principal); M75.112 Incomplete rotator cuff tear or rupture of left shoulder, not specified as traumatic; M75.32 Calcific tendinitis of left shoulder; M19.012 Primary osteoarthritis, left shoulder
CPT/HCPCS: 73221

== ENCOUNTER 2023-12-21 12:37 | Outpatient (CLI) | payer MEDICARE, SELFPAY ==
--- NOTE | 2023-12-22 14:36 | WPDPFTINT ---
PFT Procedure Performed PFT Procedure Performed Spirometry with Pre/Post Bronchodilator Plethysmography (Lung Vol) Diffusing Cap (DLCO) Flow Vol Loop PFT Interpretation Lung volumes were assessed using the body plethysmography method and were found to be unremarkable. Spirometry revealed reduced expiratory flow rates and a decreased FEV1/FVC ratio of 45%, indicative of obstructive airway disease. There was no significant improvement in expiratory flow rates following bronchodilator administration. The lung diffusion capacity is moderately reduced at 50% of the predicted value. The flow-volume loop is consistent with obstructive airway disease. Compared to the previous study conducted in 2015, there have been no significant changes in forced vital capacity and FEV1. Lung diffusion capacity remains similarly unchanged. Impression: Moderate obstructive airway disease with no response to bronchodilators during this testing. Lung diffusion capacity is moderately reduced.
--- NOTE | 2023-12-22 14:40 | WPDSIXMINUTE ---
Six Minute Walk Procedure Procedure Performed Pulmonary Stress Test (6 min walk) Six Minute Walk Six Minute Walk: This 6 minute walk test was carried out with the patient breathing ambient air. The pre-walk baseline oxyhemoglobin saturation was 96%. The patient walked 274 m with no stops during testing. During the walk the oxyhemoglobin saturation remained in the range of 93-94%. Impression: No evidence of oxyhemoglobin desaturation on this testing.
== END 2023-12-21 12:38 | disposition home or self-care (01) ==
LOC: ANHPFT 12:39
PROVIDERS: PCP Physician Assistant; Visit Provider Internal Medicine Pulmonary Disease
DX: J44.9 Chronic obstructive pulmonary disease, unspecified (principal); Z87.891 Personal history of nicotine dependence; R94.2 Abnormal results of pulmonary function studies
CPT/HCPCS: 94060; 94618; 94726; 94729

== ENCOUNTER 2024-11-22 12:58 | Outpatient (CLI) | payer MEDICARE, SELFPAY ==
--- NOTE | ~2024-11-22 | DEXA_ITS ---
Bone Density Report Name: IRAIDA BARCENAS Age: 79 Sex: Female Ethnicity: White Date of : 1945 Indication: postmenopausal; screening for osteoporosis; height loss; asthma or emphysema; Referring Provider: SACHI, DENI Study: Bone densitometry was performed. Exam Date: November 22, 2024 Accession number: [id number] Bone Density: Region BMD T-score Z-score Classification AP Spine(L1-L4) 1.151 0.9 3.7 Normal Femoral Neck (Right) 0.583 -2.4 0.0 Osteopenia Total Hip (Right) 0.767 -1.4 0.7 Osteopenia World Health Organization criteria for BMD impression classify patients as: Normal (T-score at or above -1.0), Osteopenia (T-score between -1.0 and -2.5), or Osteoporosis (T-score at or below -2.5). 10-year Fracture Risk(1): Major Osteoporotic Fracture 17% Hip Fracture 5.7% Reported Risk Factors: [place] (), Neck BMD=0.583, BMI=30.7 (1) FRAX(R) Version 3.08. Fracture probability calculated for an untreated patient. Fracture probability may be lower if the patient has received treatment. Previous Exams: Region Exam Age BMD T-score BMD Change BMD Change Date g/cm2 vs Baseline vs Previous Total Hip(Right) 11/22/2024 79 0.767 -1.4 -0.049 (-6.0%) -0.049 (-6.0%) 12/03/2020 75 0.816 -1.0 *Denotes significance at 95% confidence level, LSC for Total Hip = 0.027 g/cm2 Clinical Information Provided by Patient: Has used the following medications: Vitamin D Has the following medical conditions: Asthma or Emphysema Patient maximum height was 63 Menopause Age: 48 No regular weight bearing exercise Drinks caffeinated beverages Onset of menses at age 12 Number of children 2 Impression: The patient has low bone mass, based on the Right Femoral Neck T-score. The patient has an estimated ten-year risk of hip fracture of 5.7% and an estimated ten-year risk of major fracture of 17%, based on the WHO FRAX algorithm. The BMD for the Total Hip(Right) decreased, changing by -6.0% since the last DXA exam. Discussion: BONE DENSITY IS LOW AT ONE OR MORE SKELETAL SITES. THE PATIENT'S BMD AND CLINICAL RISK FACTORS CONTRIBUTE TO THIS PATIENT'S INCREASED RISK OF FRACTURE. This patient's lowest T-score is low at one or more skeletal sites. It meets the World Health Organization's (WHO) criteria for ?low bone mass? (T-score between -1.0 and -2.5). The patient's 10-year risk of hip fracture as calculated by FRAX exceeds the threshold where pharmacological therapy is recommended by the National Osteoporosis Foundation (NOF). However, all treatment decisions require clinical judgment and consideration of individual patient factors, including patient preferences, comorbidities, previous drug use, risk factors not captured in the FRAX model (e.g., frailty, falls, vitamin D deficiency, increased bone turnover, interval significant decline in bone density) and possible under or overestimation of fracture risk by FRAX. The patient should follow a healthful lifestyle (good nutrition with adequate calcium and vitamin D, and appropriate weight-bearing exercise). Follow-Up: Consider a repeat BMD and Vertebral Fracture Assessment (VFA) exam in 2 years or sooner if medically necessary, to reassess this patient's status. Reported by: MATHEW on 11/22/2024 1:44:00 PM. Reviewed, dictated and finalized at location A.
--- OUTSIDE RECORDS SUMMARY | 2024-11-22 13:41 | XMS_ITS | Encounter Summary ---
Author Organization [facility] Care Team Providers Care Shift Boss Name Role Phone Jael Stratton Primary Care Provider [phone] Ari Gipson MD Unavailable [phone] Carrie Pelayo Unavailable [phone] Silvino Gavin NP Unavailable [phone] Encounter Details Date Type Department Care Team (Latest Contact Info) Description 04/21/2017 Orders Only [facility] Provider, MD Dim[place] [address] [place] [id number] Social History Tobacco Use Types Packs/Day Years Used Date Smoking Tobacco: Never Assessed Comments Unknown Sex and Gender Information Value Date Recorded Sex Assigned at Not on file Legal Sex Female 1:54 AM AUTO MACHINIST Gender Identity Female 12/17/2023 10:15 AM CDT Sexual Orientation Not on file documented as of this encounter Plan of Treatment Not on file documented as of this encounter Procedures Procedure Name Priority Date/Time Associated Diagnosis Comments SCAN - LABS 04/22/2017 12:00 AM AUTO MACHINIST documented in this encounter Results * SCAN - LABS (04/22/2017 12:00 AM AUTO MACHINIST) Narrative 04/22/2017 12:00 AM AUTO MACHINIST Ordered by an unspecified provider. Historical Provider Final Res ult documented in this encounter Visit Diagnoses Not on filedocumented in this encounter Additional Health Concerns Infection Onset Date Last Indicated Resolved Time COVID: Suspected 03/27/2021 03/28/202103/29/2021 12:10 AM AUTO MACHINIST documented as of this encounter Care Teams Shift Boss Relationship Specialty Start Date End Date Jael Stratton PA [address] [place] [address] PCP - General Internal Medicine 06/23/18 Ari Gipson MD [address] [place] [address] Consulting Physician Pulmonary Disease 10/29/18 Carrie Pelayo PA [address] [place] [address] [address] [place] [address] Physician Electrical Cad Designer Orthopedic Surgery 12/28/23 Silvino Gavin NP [address] [place] [address] [address] [place] [address] Nurse Practitioner Orthopedic Surgery 01/04/24 documented as of this encounter
--- OUTSIDE RECORDS SUMMARY | 2024-11-22 13:41 | XMS_ITS | Clinical Summary ---
Author Organization [facility] Address [address] [place] [address] Care Team Providers Care Enrollment Services Dean Name Role Phone Jael Stratton Primary Care Provider [phone] Ari Gipson MD Unavailable [phone] Carrie Pelayo Unavailable [phone] Silvino Gavin NP Unavailable [phone] Allergies Active Allergy Reactions Criticality Noted Date Comments Adhesive Tape-Silicones Rash Medium Reaction: RASH, Reaction: RASH Metronidazole Vomiting,Stomach upset Low 06/23/2018 Stomach/GI Upset Medications biotin 1 mg capsule Rx: Biotin Active cranberry lzpo-O-wvbzhohw coag 250-30-50 eu-no-bjpntse tablet Take 1 capsule by mouth daily Active meclizine (ANTIVERT) 25 mg tablet Take 1 tablet (25 mg total) by mouth as needed for dizziness Active multivitamin capsule Take 1 capsule by mouth daily Active pumpkin seed extract-soy germ 300 mg capsule Active hydroCHLOROthia zide (HYDRODIURIL) 25 mg tabletIndicatio ns:Essential hypertension Take 1 tablet (25 mg total) by mouth daily 90 tablet 1 01/09/20 22 Active albuterol 2.5 mg /3 mL (0.083 %) nebulizer solution Take 3 mL (2.5 mg total) by nebulization 4 (four) times a day 360 mL 3 05/21/19 23 Active Ventolin HFA 90 mcg/actuation inhalerIndicati ons:SOB (shortness of breath) Inhale 2 puffs every 6 (six) hours as needed for shortness of breath for wheezing 18 g 1 12/12/19 23 Active inhalational spacing device spacerIndicatio ns:SOB (shortness of breath) Use inhaler spacing devise with inhaler every 6 hours as needed 1 each 1 12/12/19 23 Active aspirin 81 mg enteric coated tabletIndicatio ns:prevention of thrombosis Take 1 tablet (81 mg total) by mouth 2 (two) times a day For 30 days then resume once daily dosing 12/28/19 24 Active senna-docusate (PERICOLACE) 8.6-50 mg Take 1 tablet by mouth 2 (two) times a day as needed for constipation 60 tablet 12/28/19 24 Active ascorbic acid (VITAMIN C) 500 mg tablet,chewable Take 1 tablet/chew tab (500 mg total) by mouth 2 (two) times a day 60 tablet/chew tab 12/28/19 24 Active ondansetron (ZOFRAN) 4 mg tabletIndicatio ns:Prevention of Post-Operative Nausea and Vomiting Take 1 tablet (4 mg total) by mouth every 6 (six) hours as needed for nausea or vomiting 30 tablet 1 12/28/19 24 Active Additional Information Patient not taking.Reported on 09/12/2024 miscellaneous medical supply misc 2 liters only at night while sleeping Active cholecalciferol (VITAMIN D-3) 2000 unit capsule Take 1 capsule (2,000 Units total) by mouth daily 06/06/19 25 Active olmesartan (BENICAR) 40 mg tablet Take 1 tablet by mouth once daily 100 tablet 1 07/24/19 25 Active amLODIPine (NORVASC) 10 mg tablet Take 1 tablet by mouth nightly 90 tablet 2 08/19/19 25 Active atorvastatin (LIPITOR) 10 mg tablet Take 1 tablet by mouth once daily 90 tablet 09/26/19 25 Active omeprazole (PriLOSEC) 40 mg capsule TAKE ONE CAPSULE BY MOUTH ONE TIME DAILY 100 capsule 09/30/19 25 Active carvediloL (COREG) 12.5 mg tabletIndicatio ns:Essential hypertension TAKE 1 TABLET BY MOUTH TWICE DAILY WITH MEALS 180 tablet 11/04/19 25 Active carvediloL (COREG) 12.5 mg tabletIndicatio ns:Essential hypertension TAKE 1 TABLET BY MOUTH TWICE DAILY WITH MEALS 180 tablet 08/09/19 25 2024 Discontinued Active Problems Problem Noted Date Diagnosed Date BMI 30.0-30.9,adult 09/05/2024 Assessment & Plan (09/05/2024 11:04 AM CDT): Discussed the patient's BMI. The BMI is above average. BMI management plan is completed. BMI Follow-up includes: nutrition counseling, exercise counseling and education provided. Obesity (BMI 30.0-34.9) 09/05/2024 Assessment & Plan (09/05/2024 12:43 PM CDT): Discussed the patient's BMI. The BMI is above average. BMI management plan is completed. BMI Follow-up includes: nutrition counseling, exercise counseling and education provided. S/P reverse total shoulder arthroplasty, left Rotator cuff arthropathy, left 12/06/2023 Assessment & Plan (12/16/2023 2:59 PM CDT): Patient following with Dr. Whitney with left shoulder pain/rotator cuff arthropathy. She has a reverse total shoulder arthroplasty scheduled for December 27 at [facility]. Left hip pain 07/08/2021 Assessment & Plan (07/08/2021 9:19 PM CDT): Patient notes increased left h ip pain . She feels like it is similar to the pain she had prior to her hip replacement. She denies any falls or injuries. Pain is more lateral not really in the groin but just feels more discomfort over the last few months. She has not had an x-ray in years for stability of the replacement. She has not had a fall. Recommend checking x-rays to confirm prosthesis is in place. If it is negative then will consider physical therapy. Grief 01/04/2021 Overview (01/04/2021): Alberto on 12/31/2020 Assessment & Plan (01/29/2021 2:22 PM HAND STITCHER): Patient states she is doing okay. Has good support around her. Is staying active. Getting out almost every day even if it is just out to the garage to clean. She is able to call support groups as needed. She call the office at any time for support as needed. Liver follow-up in the spring for Medicare wellness or sooner for problems or concerns. Assessment & Plan (01/04/2021 6:55 PM CDT): Patient is grieving appropriately. Provided information on grief share support groups. Will go ahead and provide Xanax 0.25 mg to use as needed for anxiety and/or sleep over the next few weeks. If she has any concerns she is to call the office immediately for support. She voices understanding and appreciates that. Menopause 12/08/2020 Assessment & Plan (12/08/2020 2:18 PM CDT): Check DXA Essential hypertension 12/08/2020 Assessment & Plan (12/16/2023 3:00 PM CDT): Bp is stable/in acceptable range for any co-morbidities. Encouraged to limit sodium intake and exercise for weight control. Continue Coreg 12.5 b.i.d. Olmesartan 40 Amlodipine 10 HCTZ 25 Assessment & Plan (10/03/2023 3:41 PM CDT): Bp is stable/in acceptable range for any co-morbidities. Encouraged to limit sodium intake and exercise for weight control. Continue Coreg 12.5 b.i.d., hydrochlorothiazide 25, olmesartan 25 and amlodipine 2.5 Assessment & Plan (12/12/2022 8:07 PM CDT): Bp is stable/in acceptable range for any co-morbidities. Encouraged to limit sodium intake and exercise for weight control. Continue Coreg 12.5 b.i.d. hydrochlorothiazide olmesartan 40 in the a.m. amlodipine 2.5 in the p.m.. Await recommendations from Cardiology Assessment & Plan (08/30/2022 8:06 PM CDT): Bp is stable/in acceptable range for any co-morbidities. Encouraged to limit sodium intake and exercise for weight control. Continue Coreg olmesartan, amlodipine and hydrochlorothiazide Assessment & Plan (06/22/2022 12:25 AM CDT): Bp is elevated today. Encouraged home readings and call with update. Encouraged to limit sodium intake and exercise for weight control. Continue Coreg 12.5 b.i.d. and hydrochlorothiazide 25, olmesartan 40 and amlodipine 2.5 Assessment & Plan (01/10/2022 4:35 PM CDT): Bp is stable/in acceptable range for any co-morbidities. Encouraged to limit sodium intake and exercise for weight control. Continue Coreg 12.5 hydrochlorothiazide 25 olmesartan 40 Assessment & Plan (07/08/2021 9:17 PM CDT): Bp is stable/in acceptable range for any co-morbidities. Encouraged to limit sodium intake and exercise for weight control. Continue Coreg 12.5 b.i.d. hydrochlorothiazide 25 and olmesartan 40 Assessment & Plan (05/28/2021 12:12 AM CDT): Bp is stable/in acceptable range for any co-morbidities. Encouraged to limit sodium intake and exercise for weight control. Continue to Coreg 12.5 b.i.d., hydrochlorothiazide 25, olmesartan 40 Assessment & Plan (12/08/2020 2:17 PM CDT): Bp is stable/in acceptable range for any co-morbidities. Encouraged to limit sodium intake and exercise for weight control. Continue coreg, olmesartan and HCTZ Fatigue 05/25/2020 Assessment & Plan (10/03/2023 3:40 PM CDT): Probably multifactorial. Check labs and followup to re-evaluate Assessment & Plan (08/30/2022 8:06 PM CDT): Probably multifactorial. Check labs and followup to re-evaluate Maybe secondary to arrhythmia so refer to cardiology. Assessment & Plan (01/10/2022 4:35 PM CDT): Probably multifactorial. Check labs and followup to re-evaluate Assessment & Plan (12/08/2020 2:14 PM CDT): Probably multifactorial. Check labs and followup to re-evaluate Assessment & Plan (05/25/2020 8:54 PM HAND STITCHER): Probably multifactorial. Check labs and followup to re-evaluate Pre-diabetes 05/25/2020 Assessment & Plan (12/16/2023 12:31 PM CDT): Pre-diabetes/hyperglycemia is a precursor to Dm. Stressed importance of working on diet (decrease your simple sugars and one carbohydrate with each meal) and increase you exercise to achieve weight loss and this will help prevent you from progressing to diabetes. Assessment & Plan (10/03/2023 3:40 PM CDT): Pre-diabetes/hyperglycemia is a precursor to Dm. Stressed importance of working on diet (decrease your simple sugars and one carbohydrate with each meal) and increase you exercise to achieve weight loss and this will help prevent you from progressing to diabetes. Assessment & Plan (12/12/2022 8:05 PM CDT): Pre-diabetes/hyperglycemia is a precursor to Dm. Stressed importance of working on diet (decrease your simple sugars and one carbohydrate with each meal) and increase you exercise to achieve weight loss and this will help prevent you from progressing to diabetes. Assessment & Plan (06/22/2022 12:16 AM CDT): Pre-diabetes/hyperglycemia is a precursor to Dm. Stressed importance of working on diet (decrease your simple sugars and one carbohydrate with each meal) and increase you exercise to achieve weight loss and this will help prevent you from progressing to diabetes. Assessment & Plan (01/10/2022 4:35 PM CDT): Pre-diabetes/hyperglycemia is a precursor to Dm. Stressed importance of working on diet (decrease your simple sugars and one carbohydrate with each meal) and increase you exercise to achieve weight loss and this will help prevent you from progressing to diabetes. Assessment & Plan (05/28/2021 12:11 AM CDT): Pre-diabetes/hyperglycemia is a precursor to Dm. Stressed importance of working on diet (decrease your simple sugars and one carbohydrate with each meal) and increase you exercise to achieve weight loss and this will help prevent you from progressing to diabetes. Assessment & Plan (12/08/2020 2:12 PM CDT): Pre-diabetes/hyperglycemia is a precursor to Dm. Stressed importance of working on diet (decrease your simple sugars and one carbohydrate with each meal) and increase you exercise to achieve weight loss and this will help prevent you from progressing to diabetes. Assessment & Plan (05/25/2020 8:53 PM HAND STITCHER): Pre-diabetes/hyperglycemia is a precursor to Dm. Stressed importance of working on diet (decrease your simple sugars and one carbohydrate with each meal) and increase you exercise to achieve weight loss and this will help prevent you from progressing to diabetes. Nocturnal hypoxia 11/22/2018 Assessment & Plan (10/03/2023 3:40 PM CDT): Patient with history of nocturnal hypoxia per the 2019 sleep study. She continues to have leg cramping. Will repeat the nocturnal hypoxia steady now to determine if she needs oxygen through the nighttime. Pending those results may also need a repeat sleep study. Restrictive lung disease 11/22/2018 Trigger middle finger of right hand 10/29/2018 Assessment & Plan (10/29/2018 7:08 PM CDT): Will refer to Ortho hand for further evaluation so she can decide what/when she wants to treat. COPD (chronic obstructive pulmonary disease) 10/2018 Assessment & Plan (12/16/2023 12:31 PM CDT): Known COPD. Continues per Dr. Ingram. She is not on the Symbicort due to cost. Rarely needs her Ventolin. I did an overnight oximetry study and she does qualify for oxygen and this was ordered in October. Assessment & Plan (10/03/2023 3:39 PM CDT): Continues with Dr. Ingram pulmonology. Continue Atrovent per nebulizer and p.r.n. albuterol Assessment & Plan (12/12/2022 8:06 PM CDT): Continue Atrovent and albuterol. She is having difficulty affording the Breztri so provided patient assistance forms for her to complete intake to her lead recoverer. Assessment & Plan (06/22/2022 12:16 AM CDT): Continue per Dr. Ortiz, pulmonary. On Atrovent nebulizer with albuterol p.r.n. Assessment & Plan (01/10/2022 4:35 PM CDT): COPD is stable. Continue with Dr. Ortiz. Continue Incruse and albuterol Assessment & Plan (07/08/2021 9:17 PM CDT): Continue Bevespi p.r.n. albuterol Assessment & Plan (05/28/2021 12:11 AM CDT): Patient is COPD. His been prescribed Bevespi an MB draw but states it really isn't taking the Bevespi due to cost. Has been on Advair in the past. Will go ahead and prescribe generic Advair and see if she can get covered with her insurance to take it daily and then just use the albuterol p.r.n.. Assessment & Plan (12/08/2020 2:14 PM CDT): Stable with bevespi and prn albuterol Had trouble with her spacer. Encouraged her to check with pharm or order from [facility] as the last one thru her insurance was $60. Assessment & Plan (05/25/2020 8:52 PM HAND STITCHER): Continue Bevespi and prn albuterol Assessment & Plan (05/21/2019 11:14 PM CDT): Continue Bevespi Assessment & Plan (10/29/2018 7:05 PM CDT): Continue Bevespi and Albuterol prn. Continue per Dr. Gipson Mixed incontinence 07/20/2018 Diverticulosis 07/20/2018 Gastroesophageal reflux disease without esophagi tis 07/20/2018 Assessment & Plan (12/16/2023 12:30 PM CDT): Continue omeprazole daily. She has tried to decrease the dosing but will have breakthrough symptoms if she misses a dose. Assessment & Plan (10/03/2023 3:39 PM CDT): Continue PPI p.r.n. Assessment & Plan (12/12/2022 8:05 PM CDT): Continue PPI. Encouraged to use the least amount of effective medication. Is okay to use p.r.n. Assessment & Plan (06/22/2022 12:16 AM CDT): Continue omeprazole p.r.n. Assessment & Plan (01/10/2022 4:35 PM CDT): Stable without medication Assessment & Plan (05/28/2021 12:11 AM CDT): Continue PPI as needed Assessment & Plan (12/08/2020 2:13 PM CDT): Continue PPI Assessment & Plan (05/25/2020 8:53 PM HAND STITCHER): Continue PPI Assessment & Plan (05/21/2019 11:15 PM CDT): Stable with PPI Mixed hyperlipidemia 07/29/2013 Overview (06/18/2016): MIXED HYPERLIPIDEMIA Assessment & Plan (12/16/2023 12:30 PM CDT): Encouraged patient to follow low fat/low chol diet like the Mediterranean diet. Increase good fats in the diet. Increase exercise. Monitor labs as needed. Continue atorvastatin 10 Assessment & Plan (10/03/2023 3:40 PM CDT): Encouraged patient to follow low fat/low chol diet like the Mediterranean diet. Increase good fats in the diet. Increase exercise. Monitor labs as needed. Continue Crestor 10 Assessment & Plan (12/12/2022 8:06 PM CDT): Encouraged patient to follow low fat/low chol diet like the Mediterranean diet. Increase good fats in the diet. Increase exercise. Monitor labs as needed. Continue Crestor 10 Assessment & Plan (08/30/2022 8:06 PM CDT): Encouraged patient to follow low fat/low chol diet like the Mediterranean diet. Increase good fats in the diet. Increase exercise. Monitor labs as needed. Continue statin Assessment & Plan (06/22/2022 12:16 AM CDT): Encouraged patient to follow low fat/low chol diet like the Mediterranean diet. Increase good fats in the diet. Increase exercise. Monitor labs as needed. Continue Crestor 10 mg Assessment & Plan (01/10/2022 4:34 PM CDT): Encouraged patient to follow low fat/low chol diet like the Mediterranean diet. Increase good fats in the diet. Increase exercise. Monitor labs as needed. Continue Crestor 10 Assessment & Plan (12/08/2020 2:12 PM CDT): Encouraged patient to follow fat/low chol diet like the Mediterranean diet. Increase good fats in the diet. Increase exercise. Monitor labs as needed. Continue crestor 10 Assessment & Plan (05/25/2020 8:53 PM HAND STITCHER): Encouraged patient to follow fat/low chol diet like the Mediterranean diet. Increase good fats in the diet. Increase exercise. Monitor labs as needed. Continue crestor Assessment & Plan (05/21/2019 11:17 PM CDT): Encouraged patient to continue low fat/low chol diet. Continue exercise. Increase good fats in the diet. Monitor labs as needed. Assessment & Plan (10/29/2018 7:08 PM CDT): Encouraged patient to continue low fat/low chol diet. Continue exercise. Increase good fats in the diet. Monitor labs as needed. Resolved Problems Problem Noted Date Diagnosed Date Resolved Date Need for influenza vaccination 12/16/2023 06/11/2024 Assessment & Plan (12/16/2023 3:00 PM CDT): Updated in the office today Encounter for pre-operative examination 12/16/2023 06/11/2024 Assessment & Plan (12/16/2023 3:03 PM CDT): Pre-op labs and EKG results are on the chart for review. I have examined this patient and reviewed with patient the inherent risks associated with surgery, not limited to bleeding, infection, DVT, etc. Therefore, to the best of my knowledge, there is not a medical contraindication for undergoing this elective surgery with general and/or regional anesthesia. She has received cardiac clearance from her Senior Sales Engineer Dr. Guerra and it is in the chart. May HOLD her ASA for 7 days prior to the procedure and restart at the discretion of the surgeon based on her bleeding risk. Form will be completed and returned to Dr. Riddle's office. BMI 29.0-29.9,adult 09/20/2023 09/06/19 25 Assessment & Plan (06/05/2024 3:27 PM CDT): Weight/BMI is in healthy range. Continue healthy lifestyle to maintain. Assessment & Plan (12/16/2023 11:28 AM CDT): Weight/BMI is in healthy range. Continue healthy lifestyle to maintain. Assessment & Plan (11/18/2023 2:06 PM CDT): Weight/BMI is in healthy range. Continue healthy lifestyle to maintain. Assessment & Plan (10/03/2023 3:41 PM CDT): Weight/BMI is in healthy range. Continue healthy lifestyle to maintain. BMI 30.0-30.9,adult 12/12/2022 10/03/19 24 Assessment & Plan (12/12/2022 8:07 PM CDT): Discussed the patient's BMI. The BMI is above average. BMI management plan is completed. BMI Follow-up includes: nutrition counseling, exercise counseling and education provided. Palpitations 12/12/2022 10/03/2023 Assessment & Plan (12/12/2022 8:05 PM CDT): Palpitations seem to have decreased in frequency. Continue per Cardiology and await recommendations Irregular heart beat 08/30/2022 024 Assessment & Plan (08/30/2022 8:08 PM CDT): Patient has noticed an irregular heartbeat. She was able to capture this on cardia and it identified it as unclassified. EKG today was essentially normal in the office without arrhythmia. Recommend referral to Cardiology. Reviewed with patient warning signs for the ER. If she would experience racing heartbeat sustained above 140 and or if this is coupled with dizziness lightheadedness shortness a breath or has a syncopal event she is to go directly to the ER for immediate evaluation. She verbalizes understanding is in agreement with the plan. Will have her check a couple of labs prior to her appointment with Cardiology. She prefers to see Dr. Guerra in [place] as her has seen him in the past prior to his in December of 2020 Obesity (BMI 30-39.9) 08/13/20222023 Assessment & Plan (12/12/2022 8:05 PM CDT): Discussed the patient's BMI. The BMI is above average. BMI management plan is completed. BMI Follow-up includes: nutrition counseling, exercise counseling and education provided. Assessment & Plan (08/13/2022 2:41 PM CDT): Discussed the patient's BMI. The BMI is above average. BMI management plan is completed. BMI Follow-up includes: nutrition counseling, exercise counseling and education provided. BMI 34.0-34.9,adult 08/13/2022 12/08/19 Assessment & Plan (08/13/2022 2:41 PM CDT): Discussed the patient's BMI. The BMI is above average. BMI management plan is completed. BMI Follow-up includes: nutrition counseling, exercise counseling and education provided. Medicare annual wellness visit, subsequent 06/22/2022 11/19/2023 Assessment & Plan (10/03/2023 3:39 PM CDT): Encouraged healthy lifestyle, good nutrition and exercise. Encouraged Calcium and Vitamin D and weight bearing exercise for bone health. Reviewed immunizations. Reviewed age appropirate screenings. Medicare Wellness Documentation is completed within the chart Assessment & Plan (06/22/2022 12:26 AM CDT): Encouraged healthy lifestyle, good nutrition and exercise. Encouraged Calcium and Vitamin D and weight bearing exercise for bone health. Reviewed immunizations. Reviewed age appropirate screenings. Medicare Wellness Documentation is completed within the chart Colon cancer screening 06/22/202210/02 Assessment & Plan (06/22/2022 12:26 AM CDT): Due for colon cancer screening. Refer to Dr. Osei free us as Dr. Presley is no longer practicing. Obesity (BMI 30-39.9) 06/04/20222022 Assessment & Plan (2022 1:16 PM CDT): Discussed the patient's BMI. The BMI is above average. BMI management plan is completed. BMI Follow-up includes: nutrition counseling, exercise counseling and education provided. BMI 34.0-34.9,adult 2022 08/14/19 Assessment & Plan (2022 1:16 PM CDT): Discussed the patient's BMI. The BMI is above average. BMI management plan is completed. BMI Follow-up includes: nutrition counseling, exercise counseling and education provided. Need for immunization against influenza 01/10/2022 06/22/2022 Assessment & Plan (01/10/2022 4:39 PM CDT): Updated in office today BMI 34.0-34.9,adult 01/08/2022 06/05/19 23 Assessment & Plan (01/08/2022 11:21 AM CDT): Discussed the patient's BMI. The BMI is above average. BMI management plan is completed. BMI Follow-up includes: nutrition counseling, exercise counseling and education provided. Obesity (BMI 30-39.9) 07/08/20212022 Assessment & Plan (01/08/2022 11:21 AM CDT): Discussed the patient's BMI. The BMI is above average. BMI management plan is completed. BMI Follow-up includes: nutrition counseling, exercise counseling and education provided. Assessment & Plan (07/08/2021 9:32 AM CDT): Obesity is unchanged. Discussed the patient's BMI. The BMI is above average. BMI management plan is completed. BMI Follow-up includes: nutrition counseling, exercise counseling and education provided. BMI 33.0-33.9,adult 07/08/2021 01/09/20 22 Assessment & Plan (07/08/2021 9:32 AM CDT): Obesity is unchanged. Discussed the patient's BMI. The BMI is above average. BMI management plan is completed. BMI Follow-up includes: nutrition counseling, exercise counseling and education provided. Positive depression screening 05/27/2021 06/22/2022 Assessment & Plan (05/28/2021 12:12 AM CDT): Positive depression screening. Patient will be started on medication and continue to monitor closely. Obesity (BMI 30-39.9) 05/27/20212021 Assessment & Plan (05/27/2021 2:01 PM CDT): Obesity is unchanged. Discussed the patient's BMI. The BMI is above average. BMI management plan is completed. BMI Follow-up includes: nutrition counseling, exercise counseling and education provided. BMI 33.0-33.9,adult 05/27/2021 07/09/19 Assessment & Plan (05/27/2021 2:01 PM CDT): Obesity is unchanged. Discussed the patient's BMI. The BMI is above average. BMI management plan is completed. BMI Follow-up includes: nutrition counseling, exercise counseling and education provided. Torticollis 05/27/2021 06/22/2022 Assessment & Plan (05/28/2021 12:13 AM CDT): This is a significant, separately identifiable problem that was evaluated and managed on the same day as the wellness exam Patient woke up with the stiff neck a couple of days ago. Recommend he denies to the area. Has to have caution with anti-inflammatories but may try low-dose. Insert physical therapy [facility]. Order provided. If symptoms worsen or do not resolve may need additional workup/imaging. Cough 03/27/2021 06/22/2022 Assessment & Plan (03/27/2021 4:52 PM HAND STITCHER): Patient to presume positive COVID/FLU until results are available and plan to self isolate for up to 10 days from the onset of sxs. Check COVID/FLU test thru [facility] collection site in [place]. Let pt know the newest CDC recommendations are as follows: If positive COVID: Stay home for at least 5 days and isolate from others in your home. Wear a well-fitted mask if you must be around others in your home. End isolation after 5 full days if you are fever-free for 24 hours (without the use of fever-reducing medication) and your symptoms are improving. Wear a well-fitted mask for 10 full days any time you are around others inside your home or in public. Do not go to places where you are unable to wear a mask. Avoid travel Avoid being around people who are at high risk If positive FLU, complete 5 day quarantine and be fever free for 24 hours without meds and may consider antiviral based on timing and risk factors. If negative, treat sxs and observe. Treat sxs with Tylenol, Cough/cold medication otc and add VitD 5,000IU daily and Zinc 50mg daily. Monitor sxs and call or go to the ER if has any of the following: --trouble breathing --persistent pain or pressure in the chest --new confusion --inability to wake or stay awake -- bluish lips or face Will send Cheratussin Flu vaccine need 01/04/2021 06/22/2022 Assessment & Plan (01/04/2021 6:56 PM CDT): Vaccine updated in office today Obesity (BMI 30-39.9) 01/02/20212021 Assessment & Plan (01/29/2021 1:44 PM HAND STITCHER): Obesity is unchanged. Discussed the patient's BMI. The BMI is above average. BMI management plan is completed. BMI Follow-up includes: nutrition counseling, exercise counseling and education provided. Assessment & Plan (01/02/2021 1:16 PM CDT): Obesity is unchanged. Discussed the patient's BMI. The BMI is above average. BMI management plan is completed. BMI Follow-up includes: nutrition counseling, exercise counseling and education provided. BMI 34.0-34.9,adult 01/02/2021 05/28/19 Assessment & Plan (01/29/2021 1:44 PM HAND STITCHER): Obesity is unchanged. Discussed the patient's BMI. The BMI is above average. BMI management plan is completed. BMI Follow-up includes: nutrition counseling, exercise counseling and education provided. Assessment & Plan (01/02/2021 1:16 PM CDT): Obesity is unchanged. Discussed the patient's BMI. The BMI is above average. BMI management plan is completed. BMI Follow-up includes: nutrition counseling, exercise counseling and education provided. Multiple-type hyperlipidemia 12/08/2020 05/28/2021 Obesity (BMI 30-39.9) 11/27/20202020 Assessment & Plan (11/27/2020 10:51 AM CDT): Obesity is unchanged. Discussed the patient's BMI. The BMI is above average. BMI management plan is completed. BMI Follow-up includes: nutrition counseling, exercise counseling and education provided. BMI 35.0-35.9,adult 11/27/2020 01/03/20 Assessment & Plan (11/27/2020 10:51 AM CDT): Obesity is unchanged. Discussed the patient's BMI. The BMI is above average. BMI management plan is completed. BMI Follow-up includes: nutrition counseling, exercise counseling and education provided. Medicare annual wellness visit, subsequent 05/25/2020 01/10/2022 Assessment & Plan (05/28/2021 12:12 AM CDT): Encouraged healthy lifestyle, good nutrition and exercise. Encouraged Calcium and Vitamin D and weight bearing exercise for bone health. Reviewed immunizations. Reviewed age appropirate screenings. Medicare Wellness Documentation is completed within the chart Assessment & Plan (05/25/2020 8:54 PM HAND STITCHER): Encouraged healthy lifestyle, good nutrition and exercise. Encouraged Calcium and Vitamin D and weight bearing exercise for bone health. Reviewed immunizations. Reviewed age appropirate screenings. Medicare Wellness Documentation is completed within the chart Obesity (BMI 30-39.9) 05/24/20202020 Assessment & Plan (05/24/2020 10:38 AM HAND STITCHER): Obesity is unchanged. Discussed the patient's BMI. The BMI is above average. BMI management plan is completed. BMI Follow-up includes: nutrition counseling, exercise counseling and education provided. BMI 36.0-36.9,adult 05/24/2020 11/28/19 Assessment & Plan (05/24/2020 10:38 AM HAND STITCHER): Obesity is unchanged. Discussed the patient's BMI. The BMI is above average. BMI management plan is completed. BMI Follow-up includes: nutrition counseling, exercise counseling and education provided. BPV (benign positional vertigo) 11/13/2019 06/11/2024 Assessment & Plan (12/16/2023 12:31 PM CDT): Stable symptoms. Will have spells of vertigo and responds to the Antivert p.r.n. Assessment & Plan (11/19/2023 3:19 PM CDT): Patient has known vertigo. She seems to have triggered a flare while sitting in the dental chair. Has a meclizine to use as needed. Has scheduled physical therapy for vestibular therapy. If symptoms worsen she begins to have any new symptoms or stroke-like symptoms she is to call immediately. She is in agreement with the plan. Assessment & Plan (11/13/2019 9:56 PM CDT): Has done therapy and did well Will provide new PT order. Discussed trying antivert. She is happy with the otc product Breast cancer screening by mammogram 11/13/2019 12/08/2020 Assessment & Plan (11/13/2019 9:58 PM CDT): Mammogram order provided LLQ pain 09/24/2019 06/11/2024 Assessment & Plan (09/24/2019 7:32 PM CDT): Suspected diverticulitis but not responding to Cipro. Pt unable to tolerate Flagyl. Discussed referral to ER for possible admission vs treating outpatient. She prefers to try to continue with outpatient care. STAT CT abd/pelvis to determine cause and rule out other diagnosis not limited to perforation, obstruction etc. Reviewed warning signs and to go to the ER immediately if appears. NPO. Addendum from verbal report same day -- mild diverticulitis on the left side. Reviewed results with patient and will add Augmentin. Complete the Cipro. Continue with fluids but no food. [place] diet progression when starts to have pain improvement. If increased pain, fever, emesis or bloody diarrhea to ER. F.u early next week with update or sooner problems/concerns. Medicare annual wellness visit, subsequent 05/21/2019 11/13/2019 Assessment & Plan (05/21/2019 11:17 PM CDT): Encouraged healthy lifestyle, good nutrition and exercise. Encouraged Calcium and Vitamin D and weight bearing exercise for bone health. Reviewed immunizations Reviewed age appropirate screenings. Documentation is on the chart Obesity (BMI 30-39.9) 05/08/20192020 Assessment & Plan (09/21/2019 10:24 AM CDT): Obesity is unchanged. Discussed the patient's BMI. The BMI is above average. BMI management plan is completed. BMI Follow-up includes: nutrition counseling, exercise counseling and education provided. Assessment & Plan (05/08/2019 4:33 PM HAND STITCHER): Obesity is unchanged. Discussed the patient's BMI. The BMI is above average. BMI management plan is completed. BMI Follow-up includes: nutrition counseling, exercise counseling and education provided. Need for 23-polyvalent pneum ococcal polysaccharide vaccine 02/26/2019 05/21/2019 Assessment & Plan (02/26/2019 11:15 PM HAND STITCHER): Updated in office today Head congestion 02/26/2019 10/03/2023 Assessment & Plan (02/26/2019 11:14 PM HAND STITCHER): was started on antibiotic so provided RX to start if sxs worsen. She voices understanding. Use otc supportive care. Sleep disorder 11/22/2018 06/11/2024 Shortness of breath 08/30/2018 06/12/19 25 Chronic cough 08/30/2018 06/11/2024 Postnasal drip 08/30/2018 06/11/2024 BMI 35.0-35.9,adult 07/20/2018 05/25/19 21 Assessment & Plan (11/13/2019 9:58 PM CDT): Obesity is unchanged. Discussed the patient's BMI. The BMI is above average. BMI management plan is completed. BMI Follow-up includes: nutrition counseling, exercise counseling and education provided. Assessment & Plan (09/21/2019 10:25 AM CDT): Obesity is unchanged. Discussed the patient's BMI. The BMI is above average. BMI management plan is completed. BMI Follow-up includes: nutrition counseling, exercise counseling and education provided. Assessment & Plan (05/08/2019 4:32 PM HAND STITCHER): Obesity is unchanged. Discussed the patient's BMI. The BMI is above average. BMI management plan is completed. BMI Follow-up includes: nutrition counseling, exercise counseling and education provided. Assessment & Plan (02/26/2019 11:15 PM HAND STITCHER): Obesity is unchanged. Discussed the patient's BMI. The BMI is above average. BMI management plan is completed. BMI Follow-up includes: nutrition counseling, exercise counseling and education provided. Assessment & Plan (07/20/2018 1:48 PM CDT): Obesity is unchanged. Discussed the patient's BMI. The BMI is above average; BMI management plan is completed. General weight loss/lifestyle modification strategies discussed (elicit support from others; identify saboteurs; non-food rewards, etc). Stress 07/03/2018 10/03/2023 Assessment & Plan (07/08/2021 9:17 PM CDT): Managing without medication. She wants to continue to observe. May call at any time and has progression of symptoms or grief. Assessment & Plan (05/28/2021 12:11 AM CDT): This is a significant, separately identifiable problem that was evaluated and managed on the same day as the wellness exam Experiencing a little more stress may be grief and depression symptoms. She has used the Xanax on and off this last year and states it really does work. Reviewed with her the addictive and dependency characteristics associated with benzodiazepines. Encouraged considering SSRI to void is addiction dependency characteristics and get more consistent symptom control. Will start Lexapro 10 mg. Reviewed risks, benefit, alternatives, side effects and proper use. Follow-up in 4-6 weeks to reassess. Or sooner if she has any other problems or concerns Assessment & Plan (11/13/2019 9:57 PM CDT): Discussed starting SSRI. She is hesitant. Will monitor. Assessment & Plan (05/21/2019 11:16 PM CDT): Stable without medication Assessment & Plan (07/03/2018 10:27 PM CDT): Continue the Lexapro 10mg. If sxs increase she may call to increase the dose to 20mg. Anxiety 07/03/2018 10/03/2023 Assessment & Plan (10/29/2018 7:08 PM CDT): Stable with lexapro Obesity (BMI 30-39.9) 06/23/20182018 Assessment & Plan (06/23/2018 2:59 PM CDT): BMI Follow-up includes: Discussed diet and exercising counseling. Precordial pain 07/29/2013 06/11/2024 Overview (06/17/2016): PRECORDIAL PAIN Hypertension 07/29/2013 12/08/2020 Overview (06/18/2016): HYPERTENSION NOS Assessment & Plan (12/08/2020 2:11 PM CDT): Bp is stable/in acceptable range for any co-morbidities. Encouraged to limit sodium intake and exercise for weight control. Continue coreg, HCTZ and olmesartan Assessment & Plan (05/25/2020 8:53 PM HAND STITCHER): Bp is stable/in acceptable range for any co-morbidities. Encouraged to limit sodium intake and exercise for weight control. Stable with olmesartan, HCTZ and coreg Assessment & Plan (11/13/2019 9:57 PM CDT): Bp is stable/in acceptable range for any co-morbidities. Encouraged to limit sodium intake and exercise for weight control. Assessment & Plan (09/24/2019 7:29 PM CDT): Bp is stable/in acceptable range for any co-morbidities. Encouraged to limit sodium intake and exercise for weight control. Olmesartan/HCTZ to pharmacy Assessment & Plan (05/21/2019 11:15 PM CDT): Bp is stable/in acceptable range for any co-morbidities. Encouraged to limit sodium intake and exercise for weight control. Continue lisinopril/HCTZ and coreg Assessment & Plan (02/26/2019 11:14 PM HAND STITCHER): Not well controlled Continue HCTZ 25mg Coreg 12.5 bid Increase Losartan 50mg Assessment & Plan (10/29/2018 7:07 PM CDT): Bp is stable/in acceptable range for any co-morbidities. Encouraged to limit sodium intake and exercise for weight control. Continue the Coreg. Will separate the HCTZ and Losartan. Continue HCTZ at 25 Decrease the Losartan to 25. Monitor readings at home and call if >140/90 Assessment & Plan (07/03/2018 10:26 PM CDT): HTN stable but pt still experiencing mild swelling in the (B) LE. Continue the coreg Continue the LosartanHCT 50/12.5. Continue the HCTZ 12.5 but increase to two/day (with the Losartan 50/12.5. She is to call with an update and will then call out [id number] to add to the Losartan HCT 50/12.5. Encounters Date Type Department Care Team Description 09/12/2024 10:15 AM CDT Office Visit [facility] [address] [place] [address] [address] [address] Kane Abdalla MD Left hip pain (Primary Dx); Trochanteric bursitis, left hip 09/12/2024 7:40 AM CDT - 09/12/2024 11:59 PM CDT Hospital Encounter [facility] [address] [place] [address] [address] [place] [phone] Discharge Disposition: Discharge to home or self care 09/05/2024 11:00 AM CDT Office Visit [facility] [address] [place] [id number] Jael Stratton PA Essential hypertension (Primary Dx); Mixed hyperlipidemia; Chronic obstructive pulmonary disease, unspecified COPD type (HCC); Pre-diabetes; Gastroesophageal reflux disease without esophagitis; Fatigue, unspecified type; Obesity (BMI 30.0-34.9); BMI 30.0-30.9,adult from Last 3 Months Immunizations Immunization Administration Dates Next Due COVID-19 MRNA (MODERNA) .5 M L (50 MCG) VACCINE (12 YEARS AND UP) 12/16/2023 Influenza, Quadrivalent, Hig h Dose, Preservative Free, Intrr 12/22/2022,01/08/2022,01/06/2021,12/26 Influenza, Trivalent, High D ose, Split, Preservative Free, Intramuscular 12/16/2023,12/26/2018,12/31/2017,01/04 Moderna SARS-CoV-2 Monovalen t Vaccination (12+ YRS) 01/06/2023,01/19/2021 Moderna Sars-cov-2 Bivalent Vaccine 50 Mcg/0.5 mL (12+ YRS)-Blue/Del Cid 03/18/2022 Pneumococcal Conjugate PCV 13 12/31/2017 Pneumococcal Polysaccharide PPV23 02/23/2019 RSV Vaccine, Pref, Recombina nt, Subunit, Adjuvanted, PF, IM (Arexvy) 12/16/2023 Tdap 07/21/2022 ZOSTER Recombinant 07/21/2022,03/18/2022 Surgical History Surgery Date Site/Laterality Comments BACK SURGERY lumbar back surgery INCONTINENCE SURGERY CYST REMOVAL breast TOTAL HIP ARTHROPLASTY Left SHOULDER SURGERY Right FOOT SURGERY Right heel spur TUBAL LIGATION SHOULDER SURGERY 12/28/2023 Left complete replacement Medical History Medical History Date Comments Asthma Arthritis Emphysema of lung COPD Hypertension Hypercholesteremia Sleep apnea Patient wears 2L /NC at bedtime PONV (postoperative nausea and vomiting) GERD (gastroesophageal reflux disease) Family History Medical History Relation Name Comments Cancer Brother Heart disease Brother Hypertension Daughter Diabetes Father Hyperlipidemia Father Hypertension Father Asthma Mother Heart disease Mother Hypertension Mother Arthritis Sister Clotting disorder Sister Heart disease Sister Hypertension Sister Lung disease Sister Stroke Sister Relation Name Status Comments Brother Daughter Father Mother Sister Social History Tobacco Use Types Packs/Day Years Used Date Smoking Tobacco: Former Cigarettes 2 30 1 963 - 1992 Smokeless Tobacco: Never Tobacco Cessation:Counseling Given: Not Answered Alcohol Use Standard Drinks/Week Comments Never 0 (1 standard drink = 0.6 oz pur e alcohol) AUDIT-C Answer Date Recorded Q1: How often do you have a drink containing alcohol? Never 09/05/2024 Q2: How many drinks containi ng alcohol do you have on a typical day when you are drinking? Patient does not drink Q3: How often do you have si x or more drinks on one occasion? Never 09/05/2024 PHQ-2 Answer Date Recorded PHQ-2 Total Score (If total score is 3 or more points, staff should administer the PHQ-9) 0 09/05/2024 Personal Safety Answer Date Recorded Have you ever been in or are you currently in a harmful physical or emotional relationship or is someone making you feel afraid or unsafe? Denies 12/28/2023 Comments Unknown Sex and Gender Information Value Date Recorded Sex Assigned at Not on file Legal Sex Female 1:54 AM HAND STITCHER Gender Identity Female 12/17/2023 10:15 AM CDT Sexual Orientation Not on file Obstetrics History Last Filed Vital Signs Vital Sign Reading Time Taken Comments Blood Pressure 122/67 09/12/2024 10:29 AM CDT Pulse 56 09/12/2024 10:29 AM CDT Temperature 36.7 C (98.1 F) 09/05/2024 11:00 AM CDT Respiratory Rate 16 05/09/2024 8:15 AM HAND STITCHER Oxygen Saturation 97% 09/05/2024 11:00 AM CDT Inhaled Oxygen Concentration - - Weight 72.1 kg (159 lb) 09/12/2024 10:29 AM CDT Height 154.9 cm (5' 1) 09/12/2024 10:29 AM CDT Body Mass Index 30.04 09/12/2024 10:29 AM CDT Plan of Treatment Health Maintenance Due Date Last Done Comments Hepatitis B Screening 06/03/1963 Osteoporosis Screening-Bone Density Scan 12/03/2022 12/03/2020 Well Visit 65+ 09/19/2024 09/20/2023, 05/14, 05/27/2021, Additional history exists Covid-19 Vaccine (2023-04 5 season) 2024 12/16/2023, 01/06/2023, 01/06/2023, Additional history exists Influenza Vaccine (#1) 2024 , 12/22/2022, 01/08/2022, Additional history exists Depression Screening 09/05/2025 09/05/2024, 06/05/2024, 12/16/2023, Additional history exists Fall Risk Assessment 09/05/2025 09/05/2024, 06/05/2024, 12/28/2023, Additional history exists DTaP/Tdap/Td Vaccine (2 - Td or Tdap) 07/21/2032 07/21/2022 Pneumococcal vaccine 65+ Completed 02/23/2019, 12/13 Zoster Vaccine Completed 07/21/2022, 03/18/2022 Medical Devices Implanted 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 Area 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 Device Identifier Shelf Expiration Date Model / Serial / Lot Exactech Component 36mm Glenoid Glenosphere Reverse Shoulder 320-31-36 - [id number] - [id number] Implanted:Qty: 1 on 12/28/2023 by Ray Whitney MD at [facility] Left: Shoulder Exactech [id number] 10/25/2033 320-31-36 / [id number] / Exactech Equinoxe Small Reverse Superior Posterior Augment Shoulder Left 320-35-07 - [id number] - [id number] Implanted:Qty: 1 on 12/28/2023 by Ray Whitney MD at [facility] Left: Shoulder Exactech [id number] 06/01/2033 320-35-07 / [id number] / Exactech Equinoxe Lock Reverse Shoulder Glenosphere Screw Bone 320-15-05 - [id number] - [id number] Implanted:Qty: 1 on 12/28/2023 by Ray Whitney MD at [facility] Left: Shoulder Exactech [id number] 10/30/2028 320-15-05 / [id number] / Exactech Reverse Torque Define Shoulder Kit Screw 320-20-00 - [id number] - [id number] Implanted:Qty: 1 on 12/28/2023 by Ray Whitney MD at [facility] Left: Shoulder Exactech [id number] 10/26/2028 320-20-00 / [id number] / Exactech Equinoxe Od6 Mm L70 Mm Shoulder Stem Humeral Sterile 300-30-06 - [id number] - [id number] Implanted:Qty: 1 on 12/28/2023 by Ray Whitney MD at [facility] Left: Shoulder Exactech [id number] 07/21/2032 300-30-06 / [id number] / Exactech Equinoxe 4.5mm 38mm Kit Compression Lock Cap Reverse Shoulder 320-20-38 - [id number] - [id number] Implanted:Qty: 1 on 12/28/2023 by Ray Whitney MD at [facility] Left: Shoulder Exactech [id number] 07/06/2028 320-20-38 / [id number] / Exactech Equinoxe 4.5mm 34mm Kit Compression Lock Cap Reverse Shoulder 320-20-34 - [id number] - [id number] Implanted:Qty: 1 on 12/28/2023 by Ray Whitney MD at [facility] Left: Shoulder Exactech [id number] 05/02/2028 320-20-34 / [id number] / Exactech Tray Humeral Adapter 0 322-10-00 - [id number] - [id number] Implanted:Qty: 1 on 12/28/2023 by Ray Whitney MD at [facility] Left: Shoulder Exactech 09/06/2033 322-10-00 / [id number] / Exactech Liner Humeral 36mm Equinoxe Reverse Shoulder Poly 322-36-00 - [id number] - [id number] Implanted:Qty: 1 on 12/28/2023 by Ray Whitney MD at [facility] Left: Shoulder Exactech 11/14/2028 322-36-00 / [id number] / Procedures Procedure Name Priority Date/Time Associated Diagnosis Comments XR HIP LEFT 2 OR 3 VIEWS Schedule Routine, Read Routine (OP Routine) 09/12/2024 10:49 AM CDT Left hip pain DEXA AXIAL SKELETON BONE DENSITY 1 OR MORE SITES Schedule Routine, Read Routine (OP Routine) 12/03/2020 Menopause from Last 3 Months or Most Recently Relevant to Health Maintenance Results * XR Hip Left 2 or 3 Views (09/12/2024 10:49 AM CDT) Anatomical Region Laterality Modality Lower Extremities, Hip, Pelvis Left D igital Radiography Narrative 10/17/2024 5:02 PM CDT Left total hip arthroplasty in appropriate position without significant abnormality us Kane Abdalla MD IMG XR PROCEDURES Final Result * Dexa Axial Skeleton Bone Density 1 or 2 Site (12/03/2020) SCRIBED DXA T-SCORE -2.2 SCRIBED DXA Z-SCORE 3.2 SCRIBED DXA BMD 1.163 Anatomical Region Laterality Modality Body N/A Radiographic Tawana ging Jael BALL IMG DXA PROCEDURES Final R esult from Last 3 Months or Most Recently Relevant to Health Maintenance Insurance MEDICARE [id number] [facility] ACCESS CHOICE MEDICARE RAILRO[employer] [address] MEDICARE SUPPLEMENT Advance Directives For more information, please contact: [phone] * Full Code (Latest Code Status on File) Date Activated Date Inactivated Comments 12/28/2023 12:00 PM 12/28/2023 7:06 PM Care Teams Enrollment Services Dean Relationship Specialty Start Date End Date Jael Stratton PA [address] [place], [place] [id number] PCP - General Internal Medicine 06/23/18 [place] [address] [place] [address] [address] [place] [address] Consulting Physician Pulmonary Disease 10/29/18 Carrie Pelayo PA [address] [place] [address] [address] [place] [address] Physician Contact Lens Technician Orthopedic Surgery 12/28/23 Silvino Gavin NP [address] [place] [address] [address] [place] [address] Nurse Practitioner Orthopedic Surgery 01/04/24
--- OUTSIDE RECORDS SUMMARY | 2024-11-22 13:41 | XMS_ITS | Clinical Summary ---
Author Organization [facility] Address [address] [place] [address] Care Team Providers Care Snuff Box Finisher Name Role Phone Jael Stratton PA-C Primary Care Provider [phone] Source Comments [facility],non-owned Affiliates and Associated Physician Practices is amultiple site organization consisting of ambulatory clinics and hospital sitesin [place]. This disclosure is being madepursuant to the Care Everywhere program and may not contain all information available regarding this patient. Last updated 17.[facility] Social History Tobacco Use Types Packs/Day Years Used Date Smoking Tobacco: Never Assessed Comments Unknown Sex and Gender Information Value Date Recorded Sex Assigned at Not on file Legal Sex Female 6:53 AM CDT Gender Identity Not on file Sexual Orientation Not on file Plan of Treatment Health Maintenance Due Date Last Done Comments BONE DENSITY TESTING 1945 MEDICARE AWV 12 MONTHS 1945 DTAP/TDAP/TD VACCINES (1 - Tdap) 06/03/1962 PNEUMOCOCCAL VACCINE 50+ (1 of 1 - PCV) 06/03/1993 ZOSTER VACCINE (1 of 2) 06/03/1993 Respiratory Syncytial Virus (RSV) Vaccine Pt: or over 60 yrs (1 - 1-dose 75+ series) 06/03/2018 COVID-19 VACCINE ( - 2023-2 5 season) 2023 DEPRESSION SCREENING 03/15/2024 INFLUENZA VACCINE (#1) 2024 HEPATITIS B VACCINE Aged Out No longe r eligible based on patient's age to complete this topic HIB VACCINE Aged Out No longer eligi ble based on patient's age to complete this topic HPV VACCINE Aged Out No longer eligi ble based on patient's age to complete this topic MENINGOCOCCAL (Group B) VACC INE SHARED DECISION-MAKING Aged Out No longer eligibl e based on patient's age to complete this topic MENINGOCOCCAL GROUPS A/C/Y/W VACCINE Aged Out No longer eligible b ased on patient's age to complete this topic Insurance MEDICARE MEDICARE [facility] Care Teams Snuff Box Finisher Relationship Specialty Start Date End Date Jael Stratton PA-C [address] [address] [facility] - General 09/30/20
--- OUTSIDE RECORDS SUMMARY | 2024-11-22 13:41 | XMS_ITS | Encounter Summary ---
Author Organization [facility] Address [address] [place] [address] Care Team Providers Care Sourcing Associate Name Role Phone Jael Stratton PA-C Primary Care Provider [phone] Encounter Details Date Type Department Care Team (Late st Contact Info) Description 01/20/2023 Lab Requisition [facility] - DermPath Lab [address] [place] [address] [place] [address] Social History Tobacco Use Types Packs/Day Years Used Date Smoking Tobacco: Never Assessed Comments Unknown Sex and Gender Information Value Date Recorded Sex Assigned at Not on file Legal Sex Female 6:53 AM CDT Gender Identity Not on file Sexual Orientation Not on file documented as of this encounter Plan of Treatment Not on file documented as of this encounter Procedures Procedure Name Priority Date/Time Associated Diagnosis Comments DERMATOPATHOLOGY Routine 01/19/2023 3:33 AM FORM GRADER OPERATOR documented in this encounter Results * DERMATOPATHOLOGY (01/19/2023 3:33 AM FORM GRADER OPERATOR) Case Report Dermatopathology Report Case: [id number] Authorizing Provider: Roni Alas MD Collected: 01/19/2023 03:33 AM Ordering Location: [facility] DermPath Lab Received: 01/20/2023 04:01 PM Pathologist: Jaylene Zhang MD Specimen: Skin, left breast 1:40 PM FORM GRADER OPERATOR DERMATOPATHOLOGY LABORATORY Final Diagnosis Specimen A. SKIN, left breast: EPIDERMOID CYST (L72.0) 1:40 PM FORM GRADER OPERATOR DERMATOPATHOLOGY LABORATORY at 1340 FORM GRADER OPERATOR Clinical History R/O Neoplasm Undetermined 3 1:40 PM [facility] DERMATOPATHOLOGY LABORATORY Gross Description Specimen A: Received is one formalin filled container labeled with the patient's name and designated left breast. The specimen consists of a punch biopsy measuring 4x4x5 mm. Jar 0. 3 1:40 PM [facility] DERMATOPATHOLOGY LABORATORY Microscopic Description Specimen A. SKIN, left breast: Within the dermis, there is a space lined by epithelium that resembles normal epidermis and the infundibular portion of the hair follicle. 3 1:40 PM [facility] DERMATOPATHOLOGY LABORATORY Disclaimer An external and internal positive and negative controls are appropriate for the histochemical, immunohistochemical and immunofluorescence stain(s) in this case (if any), except where stated explicitly. The performance characteristics of the stain(s) cited in this report were developed and its performance characteristic determined by the Dermatopathology Laboratory at [facility], directed by Dr. Cassidy Osorio. These tests need not be, and therefore are not, approved by the [place] Food and Drug Administration. The tests are used for clinical purposes. Billing Codes Specimen Charges Stain Charges 46781 1 3 1:40 PM [facility] DERMATOPATHOLOGY LABORATORY Embedded Images 3 1:40 PM [facility] DERMATOPATHOLOGY LABORATORY Pathology/Cytolo gy TISSUE SPECIMEN FROM SKIN / Unknown 01/19/2023 3:33 AM FORM GRADER OPERATOR 01/20/2023 4:01 PM FORM GRADER OPERATOR Roni Alas MD LAB - PATHOLOGY/CYTOLOGY ORD ERABLES Final Result DERMATOPATHOLOGY LABORATORY [facility] - Department of Dermatology [address] [place] [address], [facility] [phone] documented in this encounter Visit Diagnoses Not on filedocumented in this encounter Care Teams Sourcing Associate Relationship Specialty Start Date End Date Jael Stratton PA-C [address] [facility] [facility] [address] [address] [place] [address] PCP - General 09/30/20 documented as of this encounter
--- OUTSIDE RECORDS SUMMARY | 2024-11-22 13:41 | XMS_ITS | Encounter Summary ---
Author Organization [facility] Facility Care Team Providers Care Life Insurance Specialist Name Role Phone Jael Stratton Primary Care Provider [phone] Ari Gipson MD Unavailable [phone] Carrie Pelayo Unavailable [phone] Silvino Gavin NP Unavailable [phone] Encounter Details Date Type Department Care Team (Latest Contact Info) Description 06/30/2017 Orders Only [facility] ProviderDimas MD [address] [place] [id number] Social History Tobacco Use Types Packs/Day Years Used Date Smoking Tobacco: Never Assessed Comments Unknown Sex and Gender Information Value Date Recorded Sex Assigned at Not on file Legal Sex Female 1:54 AM CLAM DIGGER Gender Identity Female 12/17/2023 10:15 AM CDT Sexual Orientation Not on file documented as of this encounter Plan of Treatment Not on file documented as of this encounter Procedures Procedure Name Priority Date/Time Associated Diagnosis Comments COLONOSCOPY - SCAN 06/30/2017 12 :00 AM CDT documented in this encounter Results * COLONOSCOPY - SCAN (06/30/2017 12:00 AM CDT) Narrative 06/30/2017 12:00 AM CDT Ordered by an unspecified provider. Historical Provider Final Res ult documented in this encounter Visit Diagnoses Not on filedocumented in this encounter Additional Health Concerns Infection Onset Date Last Indicated Resolved Time COVID: Suspected 03/27/2021 03/28/2021 03/29/2021 12:10 AM CLAM DIGGER documented as of this encounter Care Teams Life Insurance Specialist Relationship Specialty Start Date End Date Jael Stratton PA [address] [place] [address] PCP - General Internal Medicine 06/23/18 Ari Gipson MD [address] [place] [address] Consulting Physician Pulmonary Disease 10/29/18 Carrie Pelayo PA [address] [place] [address] [address] [place] [address] Physician Needle Straightener Orthopedic Surgery 12/28/23 iSlvino Gavin NP [address] [place] [address] [address] [place] [address] Nurse Practitioner Orthopedic Surgery 01/04/24 documented as of this encounter
== END 2024-11-22 12:59 | disposition home or self-care (01) ==
LOC: ANHFOHIMG 13:02
PROVIDERS: PCP Physician Assistant; Visit Provider Physician Assistant
DX: Z78.0 Asymptomatic menopausal state (principal); M85.851 Other specified disorders of bone density and structure, right thigh
CPT/HCPCS: 77080